=== PATIENT | female | born 1935 | race Caucasian/White ===

== ENCOUNTER 2024-01-01 11:27 | Emergency (ER) | payer MEDICARE, OTHER, SELFPAY ==
--- NOTE | ~2024-01-01 | CT_ITS ---
EXAMINATION: CT abdomen pelvis w con DATE: 01/01/2024 14:27 INDICATION: Epigastric abdominal pain. Nausea. TECHNIQUE: Computed tomography (CT) of the abdomen and pelvis was performed with 100 mL Omnipaque 350 intravenous contrast. Automated exposure control and iterative reconstruction technique were employe d. The dose-length product was 184.80 mGy-cm. COMPARISON: None. FINDINGS: The visualized portions of lung bases demonstrate mild atelectasis. There is mild bronchiec tasis in the right middle lobe, lingula, and left lower lobe. There are centrilobular nodules and miryam e-in-bud opacities bilaterally, consistent with mild pneumonia, likely chronic. No pleural effusion. The heart size is normal. No pericardial effusion. The liver is normal. There are wall calcifications of the gallbladder. There are cysts in the spleen measuring up to 6 mm. The pancreas, adrenal glands , and right kidney are normal. There is a 6 mm cyst in left kidney. There are no dilated loops of bow el. The appendix is normal. There are no pathologically enlarged lymph nodes. There is no free intrap eritoneal fluid. Left ovarian vein is enlarged, consistent with pelvic venous insufficiency. There is mild thoracic and lumbar spondylosis. IMPRESSION: 1. 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 2. Pelvic venous insufficiency. Reviewed, dictated and finalized at location A. IMPRESSION: 1. 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 2. Pelvic venous insufficiency.
[2024-01-01 11:37] VITALS: BP 171/76; PULSE 81; RESP 19; TEMP 36.4; O2SAT 96
[2024-01-01 11:48] LABS: Basophils Percent Auto 0.6 % (0.2-1.2); Eosinophils Absolute Auto 0.1 K/mm3 (0-0.3); Eosinophils Percent Auto 1.4 % (0-4.4); Hematocrit 39.3 % (37.0-47.0); Hemoglobin 13.3 g/dL (12.0-15.0); Immature Granulocyte Absolute 0.01 K/mm3 (0.00-0.031); Immature Granulocyte Percent A 0.2 % (0-0.5); Lymphocytes Absolute Auto 0.62 K/mm3 (0.9-3.2); Mean Corpuscular HGB Conc 33.8 g/dl (32-36); Mean Corpuscular Hemoglobin 30.9 pg (26-34); Mean Corpuscular Volume 91.4 fl (80-100); Mean Platelet Volume 9.4 fl (7.4-10.4); Monocytes Absolute Auto 0.5 K/mm3 (0.1-0.6); Monocytes Percent Auto 10.5 % (2.6-8.5); Neutrophils Absolute Auto 3.9 K/mm3 (1.3-6.7); Neutrophils Percent Auto 75.3 % (45.5-73.1); Platelet Count Result 292 k/mm3 (150-375); Red Cell Distribution Width 12.7 % (11.5-14.5); White Blood Count 5.2 K/mm3 (4.5-10.0)
[2024-01-01 11:59] LABS: Alanine Aminotransferase 17 U/L (6-35); Albumin Level 4.8 g/dL (3.5-5.1); Alkaline Phosphatase 81 U/L (38-126); Anion Gap 13 mmol/L (4-12); Aspartate Amino Transferase 31 U/L (14-36); Bilirubin,Total 0.7 mg/dL (0.2-1.3); Blood Urea Nitrogen 22 mg/dL (7-17); Calcium 9.9 mg/dL (8.4-10.2); Carbon Dioxide 26 mmol/L (22-30); Chloride 89 mmol/L (98-107); Estimated CRCL calculation 27 ml/min; Estimated Glomerular Filt Rate 53; Glucose 112 mg/dL (65-110); Lipase 120 U/L (23-300); Potassium 4.4 mmol/L (3.4-5.0); Sodium 128 mmol/L (137-145)
[2024-01-01 12:59] VITALS: BP 166/73; PULSE 80; RESP 13; O2SAT 100
[2024-01-01 13:03] LABS: Appearance Urine Clear (Clear); Bilirubin Urine Negative (Negative); Blood Urine Negative (Negative); Color Urine Yellow (Yellow); Glucose Urine UA Negative (Negative); Ketones Urine Negative (Negative); Leukocyte Esterase Ur Negative LEU/UL (Negative); Nitrate Urine Negative (Negative); Protein Urine Negative (Negative); Specific Grav Ur 1.009 (1.001-1.035); pH Urine 6.5 (5.0-9.0)
[2024-01-01 13:09] LABS: Add Urine Microscopic? NO
--- NOTE | 2024-01-01 13:42 | ED.ABDPAIN ---
HPI - Abdominal Pain General Chief Complaint: Abdominal Pain Stated Complaint: abd pain Time Seen by Provider: 01/01/24 13:11 Source: patient and family Mode of arrival: ambulatory Limitations: no limitations History of Present Illness HPI narrative: Patient presents with complaint epigastric abdominal pain and burning 1 months duration. This has been associated with nausea but no vomiting. 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 She has been referred to [facility] for further evaluation of this but the 1st available appointment is in April. As such she continues to do with intermittent dizziness. She then started to develop this abdominal pain. Her primary care provider (DENICE Ovalle) started her on Prilosec 3 weeks ago then prescribed dicyclomine. Last bowel movement was yesterday and small/hard. She denies any diarrhea or blood. She notes that her symptoms are worse in the morning. She does not have an appetite. Last oral intake toast this morning and half a bottle of Ensure. She has never underwent EGD but does have a consult with aKtlin Palomares for consideration of an EGD in 3 weeks. Her symptoms occurred intermittently. She has both Zofran and Compazine at home. No prior abdominal surgeries. Not on anticoagulation. Does continue to pass flatus. Related Data Home Medications Medication Instructions Recorded Confirmed calcium-vitamin D3 250 mg-50 unit tablet PO 01/08/23 12/25/23 tablet multivitamin 1 tablet PO DAILY 01/08/23 12/25/23 omega 7-pct-cwk-fish oil 100 cap PO 01/08/23 12/25/23 mg-160 mg-1,000 mg capsule (Fish Oil) sertraline 50 mg tablet (Zoloft) 75 mg PO DAILY 12/25/23 12/25/23 Allergies Allergy/AdvReac Type Severity Reaction Status Date / Time No Known Allergies Allergy Unverified 12/25/23 14:31 [facility] Past Medical History Medical History (Updated 01/02/24 @ 10:02 by Evy Azul MD) Anxiety B12 deficiency Benign positional vertigo Carotid artery calcification Heart murmur Hypertension Hypothyroidism Vestibular neuritis Surgical History Surgical History H/O colonoscopy Family History Family History Mother Hypertension Cerebrovascular accident Sibling Diabetes mellitus Hypertension Social History Social History (Updated 01/01/24 @ 14:25 by Evy Azul MD) Social History: Active, rides her bicycle Smoking status: Never smoker Alcohol intake: never Substance use: never Lack of Transportation: No Lack of Food: Never True Current Housing: I Have Housing Concerned About Future Housing: No Difficulty Paying Gas/Electric Bills: No Difficulty Paying for Meds: No Currently Unemployed: No Education: Don't Know Difficulty w/ Childcare or Family Care: No Living arrangements: alone Occupation/Education: retired Additional occupation/education comments: Former nurse; 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 HEAD: Normocephalic, atraumatic. EYES: Non injected, non icteric ENT: Nares clear, no rhinorrhea or epistaxis. NECK: Supple. CHEST: Speaking in full sentences. No respiratory distress. HEART: Regular rate and rhythm. . ABDOMEN: Soft, nondistended. Mild suprapubic fullness but without tenderness palpation. No tenderness to palpation rigidity or guarding. No peritoneal. EXTREMITIES: Normal range of motion. No edema. SKIN: Warm, dry, no rash. NEURO: No focal deficits. Alert and oriented x3. PSYCH: Normal mood and affect.
[2024-01-01] MEDS: FAMOTIDINE 20 MG/2 ML VIAL IV PUSH (14:34)
[2024-01-01] MEDS: ONDANSETRON INJ 4 MG/2 ML VIAL IV PUSH (14:34)
[2024-01-01] MEDS: SODIUM CHLORIDE 0.9% IV 1,000 ML 999 ML IV CONT (14:34)
[2024-01-01] MEDS: DOXYCYCLINE HYCLATE 100 MG TABLET PO (17:51)
== END 2024-01-01 17:59 | disposition home or self-care (01) ==
PROVIDERS: Emergency Provider Student in an Organized Health Care Education/Training Program; PCP Nurse Practitioner Family
DX: R10.13 Epigastric pain (principal); E87.1 Hypo-osmolality and hyponatremia; J18.9 Pneumonia, unspecified organism; I10 Essential (primary) hypertension; E53.8 Deficiency of other specified B group vitamins; E03.9 Hypothyroidism, unspecified; F41.9 Anxiety disorder, unspecified; Z79.899 Other long term (current) drug therapy; I87.2 Venous insufficiency (chronic) (peripheral)
CPT/HCPCS: 36415; 74177; 80053; 81003; 83690; 85025; 87015; 87070; 87116; 87118; 87205; 87206; 96361; 96374; 96375; 99284; A9270; J2405; J7030; Q9967

== ENCOUNTER 2024-01-03 07:55 | Emergency (ER) | payer MEDICARE, OTHER, SELFPAY ==
[2024-01-03] VITALS (15 sets, daily range): BP systolic 144–190; BP diastolic 59–155; PULSE 85–90; RESP 17–22; TEMP 36.6–37.2; O2SAT 92–100
--- NOTE | 2024-01-03 08:00 | ECG_ITS ---
Test Date: 2024-01-03 08:03:55 Measurements Intervals [place] Rate: 93 P: 74 [place]: 172 QRS: -16 QRSD: 85 T: 78 QT: 345 QTc: 430 Interpretive Statements SINUS RHYTHM POSSIBLE LEFT ATRIAL ENLARGEMENT [-0.1mV P WAVE IN V1/V2] NONSPECIFIC T-WAVE ABNORMALITY ABNORMAL ECG No previous ECG available for comparison Electronically Signed On 01-03-2024 11:33:16 CDT by Sandeep Smith M.D.
--- NOTE | 2024-01-03 09:30 | ED.ABDPAIN ---
HPI - Abdominal Pain General Chief Complaint: Anxiety <Billy Schwarz APRN - Last Filed: 01/03/24 09:39> Stated Complaint: abd pain <Billy Schwarz APRN - Last Filed: 01/03/24 09:39> Time Seen by Provider: 01/03/24 09:30 <Billy Schwarz APRN - Last Filed: 01/03/24 09:39> patient presents with epigastric pain that has been increasing since last night. patient states it is a burning pain. patient states she has had this pain in the past but has never been this bad. patient states she is scheduled for a EGD in 3 weeks. patient also having dizziness r/t her vestibular neuritis. patient also having nausea. no relief with nausea PE: A&ox3, BS CTA, epigastric tenderness with palpation, appear anxious <Billy Schwarz APRN - Last Filed: 01/03/24 09:39> History of Present Illness HPI narrative: Agree with HPI. Seen for this couple days ago. Nothing acute on CT scan. Taking daily Prilosec. <Felix Martinez MD - Last Filed: 01/03/24 14:46> Related Data Home Medications: Home Medications Medication Instructions Recorded Confirmed calcium-vitamin D3 250 mg-50 unit tablet PO 01/08/23 12/25/23 tablet multivitamin 1 tablet PO DAILY 01/08/23 12/25/23 omega 9-dih-vtq-fish oil 100 cap PO 01/08/23 12/25/23 mg-160 mg-1,000 mg capsule (Fish Oil) sertraline 50 mg tablet (Zoloft) 75 mg PO DAILY 12/25/23 12/25/23 <Billy Schwarz APRN - Last Filed: 01/03/24 09:39> Allergies/Adverse Reactions: Allergies Allergy/AdvReac Type Severity Reaction Status Date / Time No Known Allergies Allergy Unverified 12/25/23 14:31 <Billy Schwarz APRN - Last Filed: 01/03/24 09:39> Review of Systems Review of Systems: All systems reviewed & are unremarkable except as noted in HPI and below <Felix Martinez MD - Last Filed: 01/03/24 14:46> Constitutional: Constitutional: Reports no additional constitutional complaints <Felix Martinez MD - Last Filed: 01/03/24 14:46> ENT: Reports system reviewed and no additional complaints, except as documented <Felix Martinez MD - Last Filed: 01/03/24 14:46> Cardiovascular: Cardiovascular: Reports no additional cardiovascular complaints <Felix Martinez MD - Last Filed: 01/03/24 14:46> Respiratory: Respiratory: Reports no additional respiratory complaints <Felix Martinez MD - Last Filed: 01/03/24 14:46> Gastrointestinal: Gastrointestinal: Reports abdominal pain, Reports heartburn, Denies diarrhea, Denies nausea and Denies vomiting <Felix Martinez MD - Last Filed: 01/03/24 14:46> Genitourinary: Genitourinary: Reports no additional female genitourinary complaints <Felix Martinez MD - Last Filed: 01/03/24 14:46> Psychiatric: Psychiatric: Reports anxiety and Denies depression <Felix Martinez MD - Last Filed: 01/03/24 14:46> [facility] Past Medical History Medical History: Medical History (Updated 01/03/24 @ 11:59 by Felix Martinez MD) Anxiety B12 deficiency Benign positional vertigo Carotid artery calcification Heart murmur Hypertension Hypothyroidism Vestibular neuritis <Billy Schwarz APRN - Last Filed: 01/03/24 09:39> Surgical History Surgical History: Surgical History H/O colonoscopy <Billy Schwarz APRN - Last Filed: 01/03/24 09:39> Family History Family History: Family History Mother Hypertension Cerebrovascular accident Sibling Diabetes mellitus Hypertension <Billy Schwarz APRN - Last Filed: 01/03/24 09:39> Social History Social History: Social History (Updated 01/01/24 @ 14:25 by Evy Azul MD) Social History: Active, rides her bicycle Smoking status: Never smoker Alcohol intake: never Substance use: never Substance use type: does not use Lack of Transportation: No Lack of Food: Never True Current Housing: I Have Housing
[2024-01-03] MEDS: BELLADONNA ALK/PHENOB ELIX 10 ML, MAG HYDROX/ALUMINUM HYD/SIMETH 30 ML, LIDOCAINE HCL 2... PO (10:02)
[2024-01-03 10:53] LABS: Basophils Absolute Auto 0.1 K/mm3 (0.0-0.1); Eosinophils Absolute Auto 0.1 K/mm3 (0-0.3); Eosinophils Percent Auto 0.9 % (0-4.4); Hematocrit 39.3 % (37.0-47.0); Hemoglobin 13.4 g/dL (12.0-15.0); Immature Granulocyte Absolute 0.02 K/mm3 (0.00-0.031); Immature Granulocyte Percent A 0.3 % (0-0.5); Lymphocytes Absolute Auto 0.69 K/mm3 (0.9-3.2); Mean Corpuscular HGB Conc 34.1 g/dl (32-36); Mean Platelet Volume 9.5 fl (7.4-10.4); Monocytes Absolute Auto 0.6 K/mm3 (0.1-0.6); Monocytes Percent Auto 10.6 % (2.6-8.5); Neutrophils Absolute Auto 4.3 K/mm3 (1.3-6.7); Neutrophils Percent Auto 75.2 % (45.5-73.1); Platelet Count Result 265 k/mm3 (150-375); Red Blood Count 4.32 M/mm3 (4.2-5.4); Red Cell Distribution Width 12.8 % (11.5-14.5); White Blood Count 5.8 K/mm3 (4.5-10.0)
[2024-01-03 10:54] LABS: Alanine Aminotransferase 20 U/L (6-35); Albumin Level 4.5 g/dL (3.5-5.1); Alkaline Phosphatase 82 U/L (38-126); Amylase 84 U/L (30-110); Anion Gap 5 mmol/L (4-12); Aspartate Amino Transferase 29 U/L (14-36); Bilirubin,Total 0.8 mg/dL (0.2-1.3); Blood Urea Nitrogen 21 mg/dL (7-17); Calcium 9.8 mg/dL (8.4-10.2); Carbon Dioxide 28 mmol/L (22-30); Chloride 101 mmol/L (98-107); Estimated CRCL calculation 33 ml/min; Estimated Glomerular Filt Rate 59; Glucose 124 mg/dL (65-110); Lipase 114 U/L (23-300); Magnesium 2.1 mg/dL (1.6-2.3); Potassium 3.4 mmol/L (3.4-5.0); Sodium 134 mmol/L (137-145)
[2024-01-03 11:04] LABS: Troponin I < 0.012 ng/mL (0.000-0.034)
[2024-01-03] MEDS: SODIUM CHLORIDE 0.9% IV 1,000 ML 999 ML IV CONT (12:26)
[2024-01-03] MEDS: PANTOPRAZOLE SODIUM IV 40 MG VIAL IV PUSH (12:26)
[2024-01-03] MEDS: LORazepam INJ (*CRX) 2 MG/ML VIAL 0.5 MG IV PUSH (12:27)
== END 2024-01-03 14:51 | disposition home or self-care (01) ==
PROVIDERS: Nurse Practitioner Family; Emergency Provider Emergency Medicine; PCP Nurse Practitioner Family
DX: K21.9 Gastro-esophageal reflux disease without esophagitis (principal); I10 Essential (primary) hypertension; E53.8 Deficiency of other specified B group vitamins; E03.9 Hypothyroidism, unspecified; F41.9 Anxiety disorder, unspecified; Z79.899 Other long term (current) drug therapy
CPT/HCPCS: 36415; 80053; 82150; 83690; 83735; 84484; 85025; 93005; 96361; 96374; 96375; 99284; A9270; J2060; J2470; J7030

== ENCOUNTER 2024-01-09 07:15 | Day surgery (SDC) | payer MEDICARE, OTHER, SELFPAY ==
[2024-01-07 08:41] VITALS: BMI 19.3
[2024-01-07 12:38] VITALS: BMI 19.1
[2024-01-09] VITALS (9 sets, daily range): BP systolic 102–211; BP diastolic 54–90; PULSE 61–90; RESP 15–20; TEMP 36.9; O2SAT 92–100; BMI 18.3
--- NOTE | 2024-01-09 08:40 | SUR.PREOP ---
0815; PT INITIAL BP 204/84, HR 90. PT TALKING QUICKLY AND STATES SHE IS VERY ANXIOUS. PT REASSURED, WILL RECHECK BP. 0840; RECHECK BP 211/86, HR 88. PT REMAINS VERY ANXIOUS.
--- NOTE | 2024-01-09 09:03 | SUR.PREOP ---
7182; DR YANG NOTIFIED OF PT ANXIETY AND ELEVATED BP. WILL RECHECK AGAIN
[2024-01-09] MEDS: LACTATED RINGERS 1,000 ML 150 ML IV CONT (09:06)
--- NOTE | 2024-01-09 09:16 | PM.HPGS ---
History of Present Illness History of Present Illness Consent: Risks, benefits, and alternatives have been discussed and questions answered. Patient agrees to proceed with procedure. Chief complaint: Nausea Narrative: Sonja Kenney is a 88 year old female referred for EGD. Patient has a history of chronic anxiety. She complains of epigastric pain and nausea. And has had poor relief from this. Patient has tried medications for vertigo. She has seen ENT for evaluation because of ongoing epigastric pain and nausea now referred for EGD Review of Systems Review of Systems: All systems reviewed & are unremarkable except as noted in HPI and below PMFSH Past Medical History Medical History ) Anxiety B12 deficiency Benign positional vertigo Carotid artery calcification Heart murmur Hypertension Hypothyroidism Vestibular neuritis Surgical History Surgical History ) H/O colonoscopy Family History Family History ) Mother Hypertension Cerebrovascular accident Sibling Diabetes mellitus Hypertension Social History Social History ) Social History: Active, rides her bicycle Smoking status: Former smoker Alcohol intake: never Substance use: never Substance use type: does not use Lack of Transportation: No Lack of Food: Never True Current Housing: I Have Housing Concerned About Future Housing: No Difficulty Paying Gas/Electric Bills: No Difficulty Paying for Meds: No Currently Unemployed: No Education: Don't Know Difficulty w/ Childcare or Family Care: No Living arrangements: alone Occupation/Education: retired Additional occupation/education comments: Former nurse; 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: No Agree to blood products: Yes Meds Home Medications and Allergies Home Medications Medication Instructions Recorded Confirmed Type calcium-vitamin D3 250 mg-50 unit 1 tablet PO DAILY 01/08/23 01/09/24 History tablet multivitamin 1 tablet PO DAILY 01/08/23 01/09/24 History omega 8-mtd-jza-fish oil 100 1 cap PO DAILY 01/08/23 01/09/24 History mg-160 mg-1,000 mg capsule (Fish Oil) cyanocobalamin (vitamin B-12) 1,000 mcg subcut MONTHLY #10 mL 10/22/23 01/09/24 Rx 1,000 mcg/mL injection solution levothyroxine 100 mcg tablet See Rx Instructions .Route 11/04/23 01/09/24 Rx .COMPLEX #90 tabs sertraline 50 mg tablet (Zoloft) 75 mg PO DAILY 12/25/23 01/09/24 History ondansetron 4 mg disintegrating 4 mg PO Q6H PRN nausea and 01/06/24 01/09/24 Rx tablet vomiting #30 tabs pantoprazole 40 mg tablet,delayed 40 mg PO BID #60 tabs 01/06/24 01/09/24 Rx release (Protonix) amlodipine 5 mg-benazepril 10 mg 1 cap PO DAILY 01/07/24 01/09/24 History capsule (Lotrel) lorazepam 1 mg tablet 1 mg PO DAILY PRN Anxiety 01/07/24 01/09/24 History pravastatin 40 mg tablet 40 mg PO DAILY 01/07/24 01/09/24 History Allergies Allergy/AdvReac Type Severity Reaction Status Date / Time No Known Allergies Allergy Verified 01/07/24 12:39 Vital Signs Vital Signs - 24 hr 01/09/24 08:25 01/09/24 08:39 Temperature 98.4 F Pulse Rate 90 88 Respiratory Rate 20 20 Blood Pressure 204/84 H 211/86 H Pulse Oximetry 100 Oxygen Delivery Room Air Exam Narrative: Physical exam reveals patient to be alert. Vital signs stable. HEENT exam is unremarkable. Patient is anicteric. Lungs are clear to auscultation and percussion. Heart is without murmur or extra sounds. Abdomen bowel sounds are present soft nontender with no hepatosplenomegaly. Assessment and Plan Assessment and plan (1) Chronic nausea: Code(s): R11.0 - Nausea Status: Acute Assessment and Plan: Patient with ongoing nausea. Plan for EGD to
[2024-01-09] MEDS: LABETALOL HCL INJ 100 MG/20 ML VIAL IV PUSH (09:46)
[2024-01-09] MEDS: MIDAZOLAM HCL (*CRX) 2 MG/2 ML VIAL IV PUSH (09:48)
[2024-01-09] MEDS: fentaNYL CITRATE INJ (*CRX) 100 MCG/2 ML VIAL 25 MCG IV PUSH (09:53)
--- NOTE | 2024-01-09 10:00 | SUR.PREOP ---
PT GIVEN LABETOLOL, FENTANYL, AND VERSED PER DR YANG ORDERS. DAUGHTER AT BEDSIDE. 1000; SAO2 RANGING FROM 88%-96% ON ROOM AIR. HOB AT 30 DEGREES. O2 2L NC APPLIED. CALL LIGHT IN REACH. CONTINUOUS PULSE OX ON.
--- NOTE | 2024-01-09 10:05 | SUR.PREOP ---
PT AWAKE AND ALERT. MUCH MORE RELAXED NOW. CONTINUOUS PULSE OX.
--- NOTE | 2024-01-09 10:30 | WPDANESEPPF ---
Anes - Initial Pre Proc Eval Procedure: Operation Date: 01/09/24 10:00 Proposed Procedures p Esophagogastroduodenoscopy - Julio Whitmore MD Date/Time: 01/09/24 10:30 Surgeon: Julio Whitmore MD Pre Op Diagnosis: Nausea Patient Data Age: 88 Gender: F Height: 1.6 m Weight: 47 kg Last Vital Signs Temp 36.9 C 01/09/24 08:25 Pulse 73 01/09/24 10:05 Resp 16 01/09/24 10:05 BP 131/69 01/09/24 10:05 Pulse Ox 98 01/09/24 10:05 O2 Del Method Nasal Cannula 01/09/24 10:05 O2 Flow Rate 2 01/09/24 10:05 Allergies Allergy/AdvReac Type Severity Reaction Status Date / Time No Known Allergies Allergy Verified 01/07/24 12:39 Home Medications Medication Instructions Recorded Confirmed Type calcium-vitamin D3 250 mg-50 unit 1 tablet PO DAILY 01/08/23 01/09/24 History tablet multivitamin 1 tablet PO DAILY 01/08/23 01/09/24 History omega 8-wrm-mbs-fish oil 100 1 cap PO DAILY 01/08/23 01/09/24 History mg-160 mg-1,000 mg capsule (Fish Oil) cyanocobalamin (vitamin B-12) 1,000 mcg subcut MONTHLY #10 mL 10/22/23 01/09/24 Rx 1,000 mcg/mL injection solution levothyroxine 100 mcg tablet See Rx Instructions .Route 11/04/23 01/09/24 Rx .COMPLEX #90 tabs sertraline 50 mg tablet (Zoloft) 75 mg PO DAILY 12/25/23 01/09/24 History ondansetron 4 mg disintegrating 4 mg PO Q6H PRN nausea and 01/06/24 01/09/24 Rx tablet vomiting #30 tabs pantoprazole 40 mg tablet,delayed 40 mg PO BID #60 tabs 01/06/24 01/09/24 Rx release (Protonix) amlodipine 5 mg-benazepril 10 mg 1 cap PO DAILY 01/07/24 01/09/24 History capsule (Lotrel) lorazepam 1 mg tablet 1 mg PO DAILY PRN Anxiety 01/07/24 01/09/24 History pravastatin 40 mg tablet 40 mg PO DAILY 01/07/24 01/09/24 History Patient hx anesthesia problems: none Family hx anesthesia problems: none Results Review: All pre-operative results and documents have been reviewed as part of the pre-operative evaluation. [facility] Past Medical History Medical History Anxiety B12 deficiency Benign positional vertigo Carotid artery calcification Heart murmur Hypertension Hypothyroidism Vestibular neuritis Surgical History Surgical History H/O colonoscopy Family History Family History Mother Hypertension Cerebrovascular accident Sibling Diabetes mellitus Hypertension Social History Social History Social History: Active, rides her bicycle Smoking status: Former smoker Alcohol intake: never Substance use: never Substance use type: does not use Lack of Transportation: No Lack of Food: Never True Current Housing: I Have Housing Concerned About Future Housing: No Difficulty Paying Gas/Electric Bills: No Difficulty Paying for Meds: No Currently Unemployed: No Education: Don't Know Difficulty w/ Childcare or Family Care: No Living arrangements: alone Occupation/Education: retired Additional occupation/education comments: Former nurse; 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 Informed Consent: The patient's anesthetic plan and its attendant risks and benefits were discussed with the patient/family/POA. Questions were solicited and answe
== END 2024-01-09 11:15 | disposition home or self-care (01) ==
PROVIDERS: PCP Nurse Practitioner Family; Visit Provider Internal Medicine Gastroenterology
PROC: 0DJ08ZZ Inspection of Upper Intestinal Tract, Via Natural or Artificial Opening Endoscopic (ICD-10-PCS; CPT 43235; principal; 2024-01-09 10:00)
DX: R11.0 Nausea (principal); R10.13 Epigastric pain
CPT/HCPCS: 43239

== ENCOUNTER 2024-02-06 08:03 | Outpatient (CLI) | payer MEDICARE, OTHER, SELFPAY ==
--- NOTE | ~2024-02-06 | NM_ITS ---
EXAM: NM gastric emptying study DATE: 02/06/2024 13:27 CDT INDICATION: Nausea with vomiting TECHNIQUE: A gastric emptying study was performed using the methodology of Alexa GONZALEZ, et al. J Nucl Med 2007; 48:568-572. The patient was given a meal consisting of 2 scrambled eggs labeled with 1.047 mCi Tc-99m sulfur colloid, 2 slices of toast, two packages of jam, and approximately 120 mL of water . Simultaneous anterior and posterior 1-min images of the abdomen were obtained with the patient supi ne at multiple time points over a total period of 4 hours. The geometric mean of anterior and posteri or views was determined, and the percentage retention was calculated for each time point. COMPARISON: None. FINDINGS: Gastric retention of the radiotracer-labeled meal was 6%, 35%, and 3% at the 1-hour, 2-amanda r, and 4-hour time points, respectively. With this technique, apparent rapid gastric emptying is sugg ested by <30% gastric retention at 1 hour. Delayed gastric emptying is defined by gastric retention o f >90% at 1 hour, >60% retention at 2 hours, or >10% retention at 4 hours. IMPRESSION: 1. Normal gastric emptying. Reviewed, dictated and finalized at location B. IMPRESSION: 1. Normal gastric emptying.
== END 2024-02-06 08:04 | disposition home or self-care (01) ==
LOC: ANHIMG 08:05
PROVIDERS: PCP Nurse Practitioner Family; Visit Provider Nurse Practitioner Family
DX: R11.2 Nausea with vomiting, unspecified (principal)
CPT/HCPCS: 78264; A9541

== ENCOUNTER 2024-03-31 10:51 | Outpatient (CLI) | payer MEDICARE, OTHER, SELFPAY ==
--- NOTE | ~2024-03-31 | CT_ITS ---
CT Scan of the Chest without Contrast: Clinical Indication: Mycobacterial pulmonary infection Technique: Contiguous sections were acquired throughout the chest without intravenous contrast. Dose reduction technique was used on this scan by utilizing automated exposure control and iterative recon struction technique. The dose-length product (DLP) was 66.55 mGy-cm. Findings: There is no evidence of any significant mediastinal, hilar or axillary lymphadenopathy. There are ath erosclerotic calcifications of the aorta and coronary arteries. There is no evidence of pleural or pericardial effusion. There is biapical pulmonary scarring. Calcified granulomas present in the right lower lobe. There are scattered areas of tree-in-bud opacities involving the right middle lobe, lingula, medial left lower lobe, and anterolateral right lower lobe. Several slightly larger nodules are present at the medial left lower lobe, measuring up to 7 mm in diameter. Images through the upper abdomen reveal no abnormalities. Impression: Scattered tree-in-bud opacities in the lungs, as detailed above, with several slightly larger nodules at the medial left lower lobe. 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 Reviewed, dictated and finalized at [facility]. Impression: Scattered tree-in-bud opacities in the lungs, as detailed above, with several s lightly larger nodules at the medial left lower lobe. 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
== END 2024-03-31 10:52 | disposition home or self-care (01) ==
PROVIDERS: PCP Nurse Practitioner Family; Visit Provider Internal Medicine Pulmonary Disease
DX: A31.0 Pulmonary mycobacterial infection (principal)
CPT/HCPCS: 71250

== ENCOUNTER 2024-04-22 12:56 | Outpatient (CLI) | payer MEDICARE, OTHER, SELFPAY | END 2024-04-22 12:57 | disposition home or self-care (01) | PROVIDERS: PCP Nurse Practitioner Family; Visit Provider Nurse Practitioner Family | DX: A31.0 Pulmonary mycobacterial infection (principal) | CPT/HCPCS: 87015; 87070; 87116; 87205; 87206 ==

== ENCOUNTER 2024-07-15 13:50 | Outpatient (CLI) | payer MEDICARE, OTHER, SELFPAY ==
--- OUTSIDE RECORDS SUMMARY | 2024-07-15 13:53 | XMS_ITS ---
Author Organization [facility] [place] Address [address] [place] [address] Care Team Providers Care Diamond Polisher Name Role Phone Santo JAMES, Khari Primary Care Provider Unavailab Yeni Dhaliwal Unavailable [phone] Allergies Allergen (clinical drug ingredient) Drug/Non Drug Allergy documented on EMR Reaction Allergy Type Onset Date Status Inapsine Unknown Drug Allergy 11/18/2023 Active REASON FOR VISIT follow up DAMON, adjustment disorder, panic disorder, insomnia Medications Medication SIG (Take, Route, Frequency, Duration) Notes Start Date End Date Status diazePAM 5 MG TAKE 1 TABLET BY MOUTH EVERY 8 HOURS NEEDED FOR DIZZINESS Oral for 10 Days [id number],Unavail able Not-Taking amLODIPine Besy-Benazepril HCl 5-10 MG Oral 10/16/2023 Active Levothyroxine Sodium 100 MCG Oral 10/16/2023 Active Ofloxacin 0.30% Ophthalmic 10/16/2023 Ac tive Pravastatin Sodium 40 MG Oral 10/16/2023 Active Cyanocobalamin 1000 MCG/ML Injection 10/16/2023 Active PriLOSEC 2.5 MG as directed Orally Active Omeprazole Magnesium 20 MG 1 tablet 30 minutes before morning meal Orally Once a day Active Sertraline HCl 100 MG 1 tablet every morning Oral Once a day for 30 days Active LORazepam 1 MG TAKE 1/2 TO 1 (ONE-HALF TO ONE) TABLET BY MOUTH ONCE DAILY NEEDED FOR SEVERE ANXIETY Oral Active Social History Tobacco Use: Social History Observation Description Date Details (start date - stop date) Former Smoker NA - NA Sex Assigned At : Social History Observation Description Sex Assigned At Female Tobacco Control (Standard) Question Answer Notes Tobacco use: Former smoker How long has it been since you last smoked? [address] ter than 10 years Section Notes: Social History Substance Use Do you or have you ever smoked tobacco?: Former smoker How much tobacco do you smoke?: None Do you or have you ever used any other forms of tobacco or nicotine?: No Do you or have you ever used e-cigarettes or vape?: Never used electronic cigarettes What was the date of your most recent tobacco screening?: 10/16/2023 Has tobacco cessation counseling been provided?: No What is your level of alcohol consumption?: None How many years have you consumed alcohol?: 3 Do you use any illicit or recreational drugs?: No Which illicit or recreational drugs have you used?: None Have you used IV drugs?: No What is your level of caffeine consumption?: Moderate Education and Occupation What is the highest grade or level of school you have completed or the highest degree you have received?: Associate degree: academic program Are you currently employed?: No Who is your employer?: None Marriage and Sexuality What is your relationship status?: Are you sexually active?: No How many children do you have?: 3 Home and Environment Are there any guns present in your home?: No Advance Directive Do you have an advance directive?: No Do you have a medical power of trademark attorney?: No Problems Problem Type SNOMED Code ICD Code Onset Dates Problem Status W/U Status Risk Notes Problem Elevated blood pressure reading without diagnosis of hypertension (229460367) Elevated blood-pressure reading, without diagnosis of hypertension (R03.0) Active confirmed Problem Somatic symptom disorder (840972641) 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 Problem Hypertension (05657979) Hypertension (I10) Active confirmed Vital Signs Blood pressure systolic 186 mm Hg 04/08/20 24 Blood pressure diastolic 78 mm Hg 024 Heart Rate 93 /min 04/08/2024 Height 63.00 in 04/08/2024 Weight 111 lbs 04/08/2024 BMI 19.66 kg/m2 04/08/2024 Height-cm 160.02 cm 04/08/2024 Weight-kg 50.35 kg 04/08/2024 Encounters Encounter Location Date [facility] [address] [address] 04/08/2024 Yeni Fall Somatic symptom disorder F45.1 ; Panic attacks F41.0 ; Insomnia due to other mental disorder F51.05 and Hypertension I10 Assessments Encounter Date Diagnosis (ICD Code) Assessment Notes Treatment Notes Treatment Clinical Notes Section Notes 04/08/2024 Somatic symptom disorder (ICD-10 - F45.1) cont. sertraline 100 mg as prescribed. Cont. lorazepam 0.5 mg, 0.5 - 1 tab as needed once a day. minimize use as much as you can. Hope to be able to discontinue when your anxiety is better controlled and health status has improved using relaxation techniques. recommend considering therapy for additional support and coping skills She was previously dx DAMON, but there is not apparent evidence of generalized anxiety. She denies being troubled by worries or anxioud about multiple factors. Her anxiety presently and as of late centers solely around her multiple health concerns. Previously diagnised adjustment disorder, however these factos have been ongoing beyond three months. Current appropriate dx somatic symptom disorder 04/08/2024 Panic attacks (ICD-10 - F41.0) denies recent panic episodes. see above She was previously dx DAMON, but there is not apparent evidence of generalized anxiety. She denies being troubled by worries or anxioud about multiple factors. Her anxiety presently and as of late centers solely around her multiple health concerns. Previously diagnised adjustment disorder, however these factos have been ongoing beyond three months. Current appropriate dx somatic symptom disorder 04/08/2024 Insomnia due to other mental disorder (ICD-10 - F51.05) cont OTC melatonin 5mg as neededcontinue good sleep hygiene She was previously dx DAMON, but there is not apparent evidence of generalized anxiety. She denies being troubled by worries or anxioud about multiple factors. Her anxiety presently and as of late centers solely around her multiple health concerns. Previously diagnised adjustment disorder, however these factos have been ongoing beyond three months. Current appropriate dx somatic symptom disorder 04/08/2024 Hypertension (ICD-10 - I10) BP was high today. Monitor at home, follow up with PCP remain compliant with treatment recommended She was previously dx DAMON, but there is not apparent evidence of generalized anxiety. She denies being troubled by worries or anxioud about multiple factors. Her anxiety presently and as of late centers solely around her multiple health concerns. Previously diagnised adjustment disorder, however these factos have been ongoing beyond three months. Current appropriate dx somatic symptom disorder Plan Of Treatment Medication Medication Name Sig Start Date Stop Date Notes Sertraline HCl 100 MG 1 tablet every mor vivek Oral Once a day for 30 days LORazepam 1 MG TAKE 1/2 TO 1 (ONE-H [place] TO ONE) TABLET BY MOUTH ONCE DAILY NEEDED FOR SEVERE ANXIETY Oral Treatment Notes Assessment Notes Somatic symptom disorder cont. sertraline 100 mg as prescribed. Cont. lorazepam 0.5 mg, 0.5 - 1 tab as needed once a day. minimize use as much as you can. Hope to be able to discontinue when your anxiety is better controlled and health status has improved using relaxation techniques. recommend considering therapy for additional support and coping skills Panic attacks denies recent panic episodes. see above Insomnia due to other mental disorder co nt OTC melatonin 5mg as neededcontinue good sleep hygiene Hypertension BP was high today. Monitor at home, follow up with PCP remain compliant with treatment recommended Next Appt Details Provider Name:Yeni mar, 08/17/2024 03:00:00 PM, [facility] [address] [facility] [address], [address], Progress Notes * HENRY FIELDROXANAOB: [birth year] (88 yo F)Acc No.[id number]:04/08/2024 Patient: DALLIN BARKER Provider: Haleigh Fall :1935 A ge:88 Y S ex:Female Date:04/08/2024 Address:[address] [place], [place] [id number] Pcp:Khari Blanchard MD Subjective: * Chief Complaints: * f ollow up DAMON, adjustment disorder, panic disorder, insomnia * HPI: D epression screening: PHQ-9 L ittle interest or pleasure in doing things S everal days, F eeling down, depressed, or hopeless S everal days, T rouble falling or staying asleep, or sleeping too much N ot at all, F eeling tired or having little energy N ot at all, P oor appetite or overeating N ot at all, F eeling bad about yourself or that you are a failure, or have let yourself or your family down N ot at all, T rouble concentrating on things, such as reading the newspaper or watching television N ot at all, M oving or speaking so slowly that other people could have noticed; or the opposite, being so fidgety or restless that you have been moving around a lot more than usual N ot at all, T houghts that you would be better off or of hurting yourself in some way N ot at all, T otal Score 2 , Interpretation M inimal Depression. I ntervention D epression Screening Findings?Negative, S uicide Risk Assessment Performed . D epression Screening: DAMON-7 (2018 Edition) F eeling nervous, anxious, or on edge?Several days, N ot being able to stop or control worrying S everal days, W orrying too much about different things N ot at all, T rouble relaxing N ot at all, B eing so restless that it is hard to sit still N ot at all, B ecoming easily annoyed or irritable?Not at all, F eeling afraid as if something awful might happen N ot at all, T otal DAMON-7 Score 2 , I f you checked any problems, how difficult have they made it for you to do your work, take care of things at home, or get along with other people? N ot difficult at all,?Interpretation of Total ( 0 to 4) No Anxiety. 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 Presents today with CC of ongoing anxiety related to multiple health issues, including vestibular neuritis causing persistent dizziness and occasional lightheadedness. She reports this all started around December, was overall healthy prior. Acid reflux now managed with Prilosec and diet. Reports dry eyes. CT scan in December for acid reflux revealed a small area of pneumonia, SC showed a n atypical mycobacterium, now having ongoing monitoring via CT scans every four months. Reports a dry cough but no other symptoms of pneumonia. Her anxiety has been relatively m anaged with sertraline and occasional lorazepam. She is scheduled to see a specialist for her vestibular neuritis later this month and continues to monitor her health closely. Has lost weight from her GERD complications, down to 102 lbs per patient, gaining weight back up, 107 today. Reports sleep as good currently, 8 hours/night aaverage. Decreased melatonin use recently. Denies depressed mood. Teary-eyed during appointment. She expresses frustration with the accumulation of multiple health issues after years of good health and is particularly concerned now with m ycobacterium infection and the potential development of worsening complications. She notes her BP has been lower lately, s ometimes omits her BP medication. Describes her dizziness as a floating sensation rather than severe vertigo. Expresses constant worry about health and recovery, denies experiencing panic attacks. H istory of Presenting Problem: ALL PREVIOUS ENCOUNTERS SEEN WITH KARIN GUILLEN. SEE OLD NOTES. 03/09/2024 f/u: seems to be better after increasing sertraline, less anxious days and I'm doing more, going out and playing cards again and riding my bike, and the acid reflux seems to have resolved. Starting to eat more again. Even made pumpkin pie the other day. Still have some anxious days. Not had full panic attack. Denies depression, SI. No, I know it's going to get better. Sleep better too, falling asleep without melatonin. still has 20 left of ativan, taking max 3-4 days a week usually 1/2 tab only. Encouraged minimizing use. Denies falls. Medical: sees s pecialist at [facility] or the vestibular neuritis in April. cont sertraline 100mg daily, recommended counseling 02/05/2024 follow up: reported increased anxiety. Endorsed medical problems of ongoing dry eyes, vestibular neuritis, GERD complications. No appetite, endorsed nauseam dizziness. Endorsed panic attacks. increased sertraline this visit to 100 mg daily. Stopped Valium, was taking old lorazepam, refilled. encouraged sleep hygiene, taking melatonin. r ecommended counseling 12/23/2023 follow up: taking zoloft 50 mg, endorsed ongoing anxiety. Endorses stomach problems: nausea, bloating, verbalized issues with this prior to sertraline. started Prilosec. Sleeping okay. Deonte Wolf for another provider. sertraline increased to 75 mg daily. encouraged sleep hygiene, taking melatonin. r ecommended counseling 11/14/2023 follow up: complains of neuritis, doing exercises for it. causes dizziness nausea, ER, given valium for dizziness. Endorses not taking the Vaium or Ativan. thinks sertraline is helping, hard to tell . denies depression, endorses anxiety from everything going on. sertraline increased to 50 mg. PCP does not want to prescribed her ativan anymore. A greed to take over for low dose, and plan for short-term ideally while trying to get SSRI on board, but want to avoid long-term regular use. intake 10/16/23: CC: jonn mcrae anxiety, I'll tell you my story. I'm 88, never had any trouble before, very healthy, I'm a nurse for 45 yrs, I like to prevent things. 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 Had lightheadedness. Went to ER, they thought maybe clogged carotid, did work up, sent me to [facility], but CT said severe and doppler said no only 50-60% and they don't operate for that. So they sent me to Ear, so going through 12 weeks of therapy for that. but in the meantime to live with this since august is hard. So I took some ativan, 1/2 of one, they gave me 2 fills of 15 since mid september and I have 2 left. They say it will take a long time for that ear nerve to regenerate and need to finish that program but just in the first week. They say most people get better. I don't know if that med is addictive or if I can keep taking it. I drive, go shopping, do my things, but have to force myself with the anxiety a nd dizzy and problems with eye focus. [see xanax in PDMR prior to lorazepam]. says that was not for this reason, a few years ago was in doctor office and he thought I was a little anxious so would take once in a while. but did take more when this all started. And then they switched to the lorazepam. initial substance abuse hx:: Caffeine: max 2 c coffee Cigarette/vape: former ETOH: zero, denied past problematic use Cannabis: denied Other drug use or tx hx: denied Anxiety hx: always been kind of a worrier, but not extreme. I always think what would I do if this happened. Think about things too much. did not keep from falling asleep before this anyway. but do now. that A little queasy sometimes. very worried about the health problems. Think they gave me the xanax in past because I was very worried about my blood pressure. Panic attacks hx:just recently, I wake up sometimes with lump in stomach and feel hot. maybe couple times a week. Depression hx: I don't know if I'm depressed, maybe a little, feel down about this, and some lack of interest, though still doing what I have to. have been feeling more tired, been having decreased appetite-but I eat anyway. Denies SI, never been an issue Sleep hx: started melatonin recently, as having harder time falling asleep. and I wake up sometimes. avg 6 hrs Denied h x of psychiatric hospitalizations, suicide attempts or self-injury. Counseling:none Trauma/abuse hx: denied At this time dx DAMON, adjustment disorder, panic attacks, insomnia, started on sertraline 25 mg daily. taking lorazepam prescribed by PCP. * ROS: G eneral / Constitutional: Patient denies c hange in appetite, headache, night sweats, sleep disturbance. P atient complains of l ightheadedness. O phthalmologic: Patient complains of d ry eyes (seeing phyician about this today). E NT: Patient complains of d ecreased hearing, reports she has v estibular neuritis causing vertigo. see HPI for more detail. R espiratory: Patient denies p ain with inspiration, shortness of breath, wheezing, sputum production. P atient complains of o ccasional dry cough. C ardiovascular: Patient denies p alpitations, chest pain, dyspnea on exertion, swelling in hands / feet, dizziness. G astrointestinal: Patient denies a bdominal pain, constipation, diarrhea, nausea, vomiting, heartburn. P atient complains of r ecent unintentional weight loss due to GERD complications, now resolved and putting weight back on. M usculoskeletal: Patient denies j oint stiffness, muscle aches, muscle spasms, weakness. N eurologic: Patient denies b alance difficulty, confusion, tic, tremor.? P sychiatric: Patient denies a uditory / visual hallucinations, delusions, suicidal thoughts, sanna, psychosis. Teofilo [facility] for details. * Medical History: * Surgical History: C arotid endarterectomy ([id number]) right 06/03/2002Cataract surgery ([id number]) 07/15/2018 * Hospitalization/Major Diagno stic Procedure: D enies Past Hospitalization * Family History: M other: Dementia . S ister: Depressive disorder , Anxiety disorder . N on-Contributory. * Social History: T obacco Use: T obacco Control (Standard) T obacco use: F ormer smoker, H ow long has it been since you last smoked? G reater than 10 years. S ocial History Substance Use Do you or have you ever smoked tobacco?: Former smoker How much tobacco do you smoke?: None Do you or have you ever used any other forms of tobacco or nicotine?: No Do you or have you ever used e-cigarettes or vape?: Never used electronic cigarettes What was the date of your most recent tobacco screening?: 10/16/2023 Has tobacco cessation counseling been provided?: No What is your level of alcohol consumption?: None How many years have you consumed alcohol?: 3 Do you use any illicit or recreational drugs?: No Which illicit or recreational drugs have you used?: None Have you used IV drugs?: No What is your level of caffeine consumption?: Moderate Education and Occupation What is the highest grade or level of school you have completed or the highest degree you have received?: Associate degree: academic program Are you currently employed?: No Who is your employer?: None Marriage and Sexuality What is your relationship status?: Are you sexually active?: No How many children do you have?: 3 Home and Environment Are there any guns present in your home?: No Advance Directive Do you have an advance directive?: No Do you have a medical power of trademark attorney?: No. * Medications: T akingPriLOSEC 2.5 MG Packet as directed Orally Omeprazole Magnesium 20 MG Tablet Delayed Release 1 tablet 30 minutes before morning meal Orally Once a day Cyanocobalamin 1000 MCG/ML Solution Injection amLODIPine Besy-Benazepril HCl 5- 10 MG Capsule Oral Levothyroxine Sodium 100 MCG Tablet Oral Ofloxacin 0.30% Solution Ophthalmic Pravastatin Sodium 40 MG Tablet Oral LORazepam 1 MG Tablet TAKE 1/2 TO 1 (ONE-HALF TO ONE) TABLET BY MOUTH ONCE DAILY NEEDED FOR SEVERE ANXIETY Oral Sertraline HCl 100 MG Tablet 1 tablet every morning Oral Once a day Taking PriLOSEC 2.5 MG Packet as directed Orally Taking Omeprazole Magnesium 20 MG Tablet Delayed Release 1 tablet 30 minutes before morning meal Orally Once a day Taking Cyanocobalamin 1000 MCG/ML Solution Injection Taking amLODIPine Besy-Benazepril HCl 5-10 MG Capsule Oral Taking Levothyroxine Sodium 100 MCG Tablet Oral Taking Ofloxacin 0.30% Solution Ophthalmic Taking Pravastatin Sodium 40 MG Tablet Oral Taking LORazepam 1 MG Tablet TAKE 1/2 TO 1 (ONE-HALF TO ONE) TABLET BY MOUTH ONCE DAILY NEEDED FOR SEVERE ANXIETY Oral Taking Sertraline HCl 100 MG Tablet 1 tablet every morning Oral Once a day Not-TakingdiazePAM 5 MG Tablet TAKE 1 TABLET BY MOUTH EVERY 8 HOURS NEEDED FOR DIZZINESS Oral , Notes to Pharmacist: [id number],UnavailableMedication List reviewed and reconciled with the patientNot-Taking diazePAM 5 MG Tablet TAKE 1 TABLET BY MOUTH EVERY 8 HOURS NEEDED FOR DIZZINESS Oral , Notes to Pharmacist: [id number],UnavailableMedication List reviewed and reconciled with the patient * Allergies: I napsine: Side Effects - Onset Date 11/18/2023no[Allergies Verified] Objective: * Vitals: B P:186/78mm Hg, HR:93/min, Wt:111lbs, Wt-k.35 kg, Ht: 63.00 in, Ht-cm: 160.02 cm, BMI:19.66Index, Body Surface Area: 1.49. * Examination: P sychiatry: Appearance: w ell-groomed, appears stated age, anxious.? Abnormal body movements: n one. Affect / mood: a ppropriate, anxious. Attention: g ood. Attitude: c ooperative. Homicidal ideation: n one. Suicidal ideation: n one. Memory status: n o impairment noted. Degree of awareness of surroundings: w ithin normal limits.? Delusions: n o. Hallucinations: n o. Insight: g ood. Intellectual functioning: n o impairment noted. Judgement: g ood. Orientation: a wake, alert and oriented x 3. Perceptual disorders: n o perceptual disorder noted. Psychomotor activity: w ithin normal range. Speech / language: n ormal rate, volume, and articulation (RVR), clear and coherent, appropriate pitch/modulation. Thought content: a ppropriate. Thought process: i ntact. G eneral Examination: General appearance: a lert, pleasant, well-nourished and in no acute distress, elderly, comfortable. Assessment: * Assessment: 1. S omatic symptom disorder - F45.1 (Primary) 2 . P anic attacks - F41.0? 3. I nsomnia due to other mental disorder - F51.05 4 . H ypertension - I10 She was previously dx DAMON, b ut there is not apparent evidence of generalized anxiety. She denies being troubled by worries or anxioud about multiple factors. Her anxiety presently and as of late centers solely around her multiple health concerns. Previously diagnised adjustment disorder, however these factos have been ongoing beyond three months. Current appropriate dx somatic symptom disorder Plan: * Treatment: 2. P anic attacks Notes: denies recent panic episodes. see above 3. I nsomnia due to other mental disorder Notes: cont OTC melatonin 5mg as neededcontinue good sleep hygiene 4. H ypertension Notes: BP was high today. Monitor at home, follow up with PCP remain compliant with treatment recommended * Procedure Codes: 9 6127 BEHAV ASSMT W/SCORE & DOCD/STAND [id number] VISIT COMPLEXITY INHERENT TO ONGOING CARE RELATED TO A PATIENT'S SINGLE, SERIOUS CONDITION OR A COMPLEX CONDITION * Preventive Medicine: Counseling: B P Management: F IRST HYPERTENSIVE BP READING FOLLOW-UP PLAN: F ollow-up 1 month Follow up with your PCP, Frankie PERES RECOMMENDATION: Frankie peres education, REFERRAL TO ALTERNATIVE / PRIMARY CARE PROVIDER: Conrad german to general medical service ____. * Billing Information: * Visit Code: [id number] OFFICE OUTPATIENT VISIT 25 MINUTES DETAILED HISTORY AND EXAM/MODERATE MEDICAL DECISION MAKING. * Procedure Codes: 16246 BEHAV ASSMT W/SCORE & DOCD/STAND INSTRUMENT. G2211 VISIT COMPLEXITY INHERENT TO ONGOING CARE RELATED TO A PATIENT'S SINGLE, SERIOUS CONDITION OR A COMPLEX CONDITION. * IM[employer] EDUCATIONAL SPECIALIST Electronically co-signed by Mayco Guillen MD on 04/13/2024 at 03:07 PM MULTIMEDIA EDUCATIONAL SPECIALIST Sign off status: Completed true * Provider: Haleigh Fall Date: 1 06/08/2023 Generated for Kim piedra/Dayanara/Martha on: 0 07/15/2024 01:53 PM MULTIMEDIA EDUCATIONAL SPECIALIST History and Physical Notes * HPI (History of Present Illness) Category Sub-Category Detail Notes Category Not es History of Presenting Problem ALL PREVIOUS ENCOUNTERS SEEN WITH KARIN GUILLEN. SEE OLD NOTES. 03/09/2024 f/u: seems to be better after increasing sertraline, less anxious days and I'm doing more, going out and playing cards again and riding my bike, and the acid reflux seems to have resolved. Starting to eat more again. Even made pumpkin pie the other day. Still have some anxious days. Not had full panic attack. Denies depression, SI. No, I know it's going to get better. Sleep better too, falling asleep without melatonin. still has 20 left of ativan, taking max 3-4 days a week usually 1/2 tab only. Encouraged minimizing use. Denies falls. Medical: sees specialist at [facility] for the vestibular neuritis in April. cont sertraline 100mg daily, recommended counseling 02/05/2024 follow up: reported increased anxiety. Endorsed medical problems of ongoing dry eyes, vestibular neuritis, GERD complications. No appetite, endorsed nauseam dizziness. Endorsed panic attacks. increased sertraline this visit to 100 mg daily. Stopped Valium, was taking old lorazepam, refilled. encouraged sleep hygiene, taking melatonin. recommended counseling 12/23/2023 follow up: taking zoloft 50 mg, endorsed ongoing anxiety. Endorses stomach problems: nausea, bloating, verbalized issues with this prior to sertraline. started Prilosec. Sleeping okay. Deonte Wolf for another provider. sertraline increased to 75 mg daily. encouraged sleep hygiene, taking melatonin. recommended counseling 11/14/2023 follow up: complains of neuritis, doing exercises for it. causes dizziness nausea, ER, given valium for dizziness. Endorses not taking the Vaium or Ativan. thinks sertraline is helping, hard to tell . denies depression, endorses anxiety from everything going on. sertraline increased to 50 mg. PCP does not want to prescribed her ativan anymore. Agreed to take over for low dose, and plan for short-term ideally while trying to get SSRI on board, but want to avoid long-term regular use. intake 10/16/23: CC: well anxiety, I'll tell you my story. I'm 88, never had any trouble before, very healthy, I'm a nurse for 45 yrs, I like to prevent things. 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 Had lightheadedness. Went to ER, they thought maybe clogged carotid, did work up, sent me to [facility], but CT said severe and doppler said no only 50-60% and they don't operate for that. So they sent me to Ear, so going through 12 weeks of therapy for that. but in the meantime to live with this since august is hard. So I took some ativan, 1/2 of one, they gave me 2 fills of 15 since mid september and I have 2 left. They say it will take a long time for that ear nerve to regenerate and need to finish that program but just in the first week. They say most people get better. I don't know if that med is addictive or if I can keep taking it. I drive, go shopping, do my things, but have to force myself with the anxiety and dizzy and problems with eye focus. [see xanax in PDMR prior to lorazepam]. says that was not for this reason, a few years ago was in doctor office and he thought I was a little anxious so would take once in a while. but did take more when this all started. And then they switched to the lorazepam. initial substance abuse hx:: Caffeine: max 2 c coffee Cigarette/vape: former ETOH: zero, denied past problematic use Cannabis: denied Other drug use or tx hx: denied Anxiety hx: always been kind of a worrier, but not extreme. I always think what would I do if this happened. Think about things too much. did not keep from falling asleep before this anyway. but do now. that A little queasy sometimes. very worried about the health problems. Think they gave me the xanax in past because I was very worried about my blood pressure. Panic attacks hx: just recently, I wake up sometimes with lump in stomach and feel hot. maybe couple times a week. Depression hx: I don't know if I'm depressed, maybe a little, feel down about this, and some lack of interest, though still doing what I have to. have been feeling more tired, been having decreased appetite-but I eat anyway. Denies SI, never been an issue Sleep hx: started melatonin recently, as having harder time falling asleep. and I wake up sometimes. avg 6 hrs Denied hx of psychiatric hospitalizations, suicide attempts or self-injury. Counseling: none Trauma/abuse hx: denied At this time dx DAMON, adjustment disorder, panic attacks, insomnia, started on sertraline 25 mg daily. taking lorazepam prescribed by PCP Depression screening PHQ-9 Little inte rest or pleasure in doing things: Several days Feeling down, depressed, or hopeless: Se veral days Trouble falling or staying asleep, or sl eeping too much: Not at all Feeling tired or having little energy: N ot at all Poor appetite or overeating: Not at all Feeling bad about yourself o r that you are a failure, or have let yourself or your family down: Not at all Trouble concentrating on thi ngs, such as reading the newspaper or watching television: Not at all Moving or speaking so slowly that other people could have noticed; or the opposite, being so fidgety or restless that you have been moving around a lot more than usual: Not at all Thoughts that you would be b kika off or of hurting yourself in some way: Not at all Total Score: 2 Interpretation: Minimal Depression Intervention Depression Screening Findings: N egative Suicide Risk Assessment Performed: ____ Depression Screening DAMON-7 (2018 Edition) Beatrice g nervous, anxious, or on edge: Several days Not being able to stop or control worryi ng: Several days Worrying too much about different things : Not at all Trouble relaxing: Not at all Being so restless that it is hard to sit still: Not at all Becoming easily annoyed or irritable: No t at all Feeling afraid as if something awful briana ht happen: Not at all Total DAMON-7 Score: 2 If you checked any problems, how difficult have they made it for you to do your work, take care of things at home, or get along with other people?: Not difficult at all Interpretation of Total: (0 to 4) No Anx iety Examination Category Sub-Category Detail Notes Category Not es Psychiatry Appearance: well-groomed, appears stated age, anxious Attitude: cooperative Psychomotor activity: within normal rang e Abnormal body movements: none Attention: good Degree of awareness of surroundings: wit hin normal limits Orientation: awake, alert and gino ented x 3 Affect / mood: appropriate, anxious Speech / language: normal rate, volume, and articulation (RVR), clear and coherent, appropriate pitch/modulation Insight: good Judgement: good Thought process: intact Thought content: appropriate Perceptual disorders: no perceptual diso rder noted Suicidal ideation: none Homicidal ideation: none Intellectual functioning: no impairment noted Memory status: no impairment noted Delusions: no Hallucinations: no General Examination General appearance: alert, p leasant, well-nourished and in no acute distress, elderly, comfortable
--- OUTSIDE RECORDS SUMMARY | 2024-07-15 13:54 | XMS_ITS ---
Author Organization [facility] Address [address] [place] [address] Care Team Providers Care Vending Service Technician Name Role Phone Santo JAMES, Dr Lucia Primary Care Provider Dr. Sandeep Flores Unavailable [phone] ZZ-Migration, Provider Unavailable Unavailab le [facility]AS[facility] Encounter Medications Medication SIG (Take, Route, Frequency, Duration) Notes Start Date End Date Status PRAVACHOL 40 MG 1 TAB(S) ORALLY ONCE A DAY *Please review for potential replacement for e-prescription and drug interaction check* Active Calcium 500+D 500 MG-10 MCG 1 TAB(S) CHEWED 2 TIMES A DAY *Please review and pick correct strength[facility]ulatio n [facility]. If intended option is not shown, discontinue and re-order from Quick Search* Active B-12 1000 MCG 1 tab(s) orally once a month Active Levothyroxine Sodium 100 MCG 1 tab(s) orally once a day Active Lotrel 5-10 MG 1 cap(s) orally once a day Active Ativan 1 MG 1 tab(s) orally 3 times a day Active Fish Oil 500 MG 1 cap(s) orally once a day Active Encounters Encounter Location Date Provider Diagnosis [facility] [address] [place] [address] 11/16/2023 Provider ZZ-Migration Plan Of Treatment No Information Progress Notes * Blade KENNEYOB: [birth year] (89 yo F)Acc No.[id number]:11/16/2023 Patient: Sonja BARKER Provider: Moreno Harrison :1935 A ge:88 Y S ex:Female Date:11/16/2023 Address:[address] [place], [place] [id number] Pcp:Dr Khari Blanchard MD Subjective: * Chief Complaints: * 1 . [facility]. * Medical History: * Medications: T aking PRAVACHOL 40 MG TABLET 1 TAB(S) ORALLY ONCE A DAY , Notes to Pharmacist: *Please review for potential replacement for e-prescription and drug interaction check*, Taking Ativan 1 MG Tablet 1 tab(s) orally 3 times a day , Taking Fish Oil 500 MG Capsule 1 cap(s) orally once a day , Taking Calcium 500+D 500 MG-10 MCG TABLET, CHEWABLE 1 TAB(S) CHEWED 2 TIMES A DAY , Notes to Pharmacist: *Please review and pick correct strength-formulation [facility] options. If intended option is not shown, discontinue and re-order from Quick Search*, Taking B-12 1000 MCG Tablet 1 tab(s) orally once a month , Taking Levothyroxine Sodium 100 MCG Tablet 1 tab(s) orally once a day , Taking Lotrel 5-10 MG Capsule 1 cap(s) orally once a day Objective: * Vitals: Assessment: Plan: * Treatment: * Billing Information: * Visit Code: * Procedure Codes: * Electronic signature of Jumana GRISSOM-Migration on 07/15/2024 at 01:53 PM PUFF IRON OPERATOR Sign off status: Pending * Provider: Moreno Harrison Date: 11/16/2023 Generated for Kim piedra/Dayanara/Martha on: 0 07/15/2024 01:53 PM PUFF IRON OPERATOR
--- OUTSIDE RECORDS SUMMARY | 2024-07-15 13:54 | XMS_ITS | Clinical Summary ---
Author Organization [facility] Address [address] [place] [address] Care Team Providers Care Automotive Technician Instructor Name Role Phone Khari Blanchard MD Primary Care Provider [phone] Antonio Thorne MD Unavailable Allergies No known active allergies Medications amLODIPine-benazepr il (LOTREL) 5-10 MG capsule Take 1 capsule by mouth daily. Active levothyroxine (SYNTHROID) 100 MCG tablet Take 1 tablet (100 mcg total) by mouth every morning. Active pravastatin (PRAVACHOL) 40 MG tablet Take 1 tablet (40 mg total) by mouth nightly at bedtime. Active Calcium Carb-Cholecalcifero l (CALCIUM 500 + D OR) Take 1 tablet by mouth daily. Active Multiple Vitamin (MULTIVITAMIN ADULT OR) Take 1 tablet by mouth daily. Active Windsor-3 Fatty Acids (FISH OIL OMEGA-3 OR) Take 1,000 mg by mouth 2 (two) times a day. Active cyanocobalamin (B-12) 1000 MCG/ML injection Inject 1 mL (1,000 mcg total) into the muscle every 30 (thirty) days. Active polyvinyl alcohol (LIQUIFILM/ARTIFICI AL TEARS) 1.4 % ophthalmic solution Place 1 drop into both eyes as needed. Active sertraline (ZOLOFT) 25 MG tablet Take 1 tablet (25 mg total) by mouth daily. Active LORazepam (ATIVAN) 1 MG tablet Take 1 tablet (1 mg total) by mouth every 6 (six) hours as needed for Anxiety. Active diazePAM (VALIUM) 5 MG tabletIndications:L eft chronic vestibular neuritis,Dizziness, Nausea Take 1 tablet (5 mg total) by mouth every 8 (eight) hours as needed (dizziness). 30 tablet 4 Active ondansetron (ZOFRAN-ODT) 4 MG disintegrating tablet Take 1 tablet (4 mg total) by mouth every 6 (six) hours as needed for Nausea. 30 tablet 4 Active prochlorperazine (COMPAZINE) 10 MG tablet Take 1 tablet (10 mg total) by mouth every 6 (six) hours as needed (nausea). 30 tablet 4 Active Social History Tobacco Use Types Packs/Day Years Used Date Smoking Tobacco: Former Cigarettes Smokeless Tobacco: Never Alcohol Use Standard Drinks/Week Comments Not Currently 0 (1 standard drink = 0.6 oz pur e alcohol) Comments Unknown Sex and Gender Information Value Date Recorded Sex Assigned at Not on file Legal Sex Female 5:43 PM CDT Gender Identity Not on file Sexual Orientation Not on file Last Filed Vital Signs Vital Sign Reading Time Taken Comments Blood Pressure 149/72 11/07/2023 6:40 PM CDT Pulse 83 11/07/2023 6:40 PM CDT Temperature 36.4 C (97.5 F) 11/07/2023 6:40 PM CDT Respiratory Rate 16 11/07/2023 6:40 PM CDT Oxygen Saturation 98% 11/07/2023 6:40 PM CDT Inhaled Oxygen Concentration - - Weight 49.2 kg (108 lb 7.5 oz) 11/07/2023 11:50 AM CDT Height 160 cm (5' 3 ) 11/07/2023 11:50 AM CDT Body Mass Index 19.21 11/07/2023 11:50 AM CDT Plan of Treatment Health Maintenance Due Date Last Done Comments DTaP, Tdap and Td Vaccines ( 1 - Tdap) 1956 Zoster Vaccines (1 of 2) 1987 Annual Medicare Wellness Visit 2002 Pneumococcal Vaccine: 65+ Years (1 of 1 - PCV) 2002 RSV Immunization or 60+ Years (1 - 1-dose 75+ series) 2012 COVID-19 Vaccine (3 - 2023-2 5 season) 2024 08/07/2020, 07/17/2020 Influenza Adult (#1) 2024 03/31/2020 Meningococcal B Vaccine Aged Out No l onger eligible based on patient's age to complete this topic Meningococcal Vaccine Aged Out No cruzito keenan eligible based on patient's age to complete this topic RSV Immunizations Under 20 Months Aged Out No longer eligible b ased on patient's age to complete this topic Insurance MEDICARE [facility] Care Teams Automotive Technician Instructor Relationship Specialty Start Date End Date Khari Blanchard MD [address] [place] [id number] PCP - General FAMILY PRACTICE 09/10/23 [place] [address] [place] [address] OTOLARYNGOLOGY 11/07/23
--- OUTSIDE RECORDS SUMMARY | 2024-07-15 13:54 | XMS_ITS ---
Author Organization [facility] Address [address] [place] [address] Care Team Providers Care Manager Mortgage Name Role Phone Santo JAMES, Dr Lucia Primary Care Provider Dr. 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, Dizziness Medications Medication SIG (Take, Route, Frequency, Duration) Notes Start Date End Date Status LEVOTHYROXINE 100 mcg (0.1 mg) 1 tab(s) orally once a day Active VITAMIN B12 1000 mcg 1 tab(s) orally onc e a month Active LOTREL 5 mg-10 mg 1 cap(s) orally once a day Active CALCIUM 500+D 500 mg-10 mcg 1 tab(s) jay wed 2 times a day Active FISH OIL 500 mg 1 cap(s) orally once a day Active ATIVAN 1 mg 1 tab(s) orally 3 ti mes a day Active PRAVACHOL 40 mg 1 tab(s) orally once a day Active Problems Problem Type SNOMED Code ICD Code Onset Dates Problem Status W/U Status Risk Notes Problem Orthostatic hypotension (73652443) Orthostatic hypotension (I95.1) Active confirmed Problem Anxiety disorder (839837484) Anxiety disorder, unspecified (F41.9) Active confirmed Problem Left carotid artery occlusion (728799645343038 ) Occlusion and stenosis of left carotid artery (I65.22) Active confirmed Vital Signs Blood pressure systolic 162 mm Hg 09/25/19 Blood pressure diastolic 81 (lying) mm Hg 2023 Respiratory Rate 18 /min 09/25/2023 Height 63 in 09/25/2023 Weight 112.2 lbs 09/25/2023 BMI 19.87 kg/m2 09/25/2023 Oximetry 97 % 09/25/2023 Encounters Encounter Location Date Provider Diagnosis [facility] [address] [place] [address] 09/25/2023 Sandeep Abbasi Dizziness and giddiness R42 ; Orthostatic hypotension I95.1 ; Anxiety disorder, unspecified F41.9 and Occlusion and stenosis of left carotid artery I65.22 Assessments Encounter Date Diagnosis (ICD Code) Assessment Notes Treatment Notes Treatment Clinical Notes Section Notes 09/25/2023 Dizziness and giddiness (ICD-10 - R42) Recommend VNG study. She tells me that she has an ENT appt later today and believes that they are going to do this study. I asked her to take my card and have records sent to me. She has mild chronic orthostatic hypotension, but that is not the issue, symptoms from this are clearly recognizable and distinct from the dizziness that she is trying to describe. I cannot ascribe the complaint to any of her medications. Neurological exam benign/normal for age. Neuroimaging unremarkable for age with no explanatory pathology. Vascular imaging with incidental, asymptomatic L ICA stenosis unrelated to symptoms with recommendation for medical management. Cardiac evaluation unremarkable. Considerations would include: atypical presentation of peripheral vestibulopathy without classic vertigo or vestibular migraine (unlikely given no migraine history and no headaches). Finally, anxiety is compounding her symptom. She needs a VNG study. 09/25/2023 Orthostatic hypotension (ICD-10 - I95.1) Not responsible for symptoms. Increase fluid intake. She has mild chronic orthostatic hypotension, but that is not the issue, symptoms from this are clearly recognizable and distinct from the dizziness that she is trying to describe. I cannot ascribe the complaint to any of her medications. Neurological exam benign/normal for age. Neuroimaging unremarkable for age with no explanatory pathology. Vascular imaging with incidental, asymptomatic L ICA stenosis unrelated to symptoms with recommendation for medical management. Cardiac evaluation unremarkable. Considerations would include: atypical presentation of peripheral vestibulopathy without classic vertigo or vestibular migraine (unlikely given no migraine history and no headaches). Finally, anxiety is compounding her symptom. She needs a VNG study. 09/25/2023 Anxiety disorder, unspecified (ICD-10 - F41.9) Advised caution with lorazepam dosing at her age. She has mild chronic orthostatic hypotension, but that is not the issue, symptoms from this are clearly recognizable and distinct from the dizziness that she is trying to describe. I cannot ascribe the complaint to any of her medications. Neurological exam benign/normal for age. Neuroimaging unremarkable for age with no explanatory pathology. Vascular imaging with incidental, asymptomatic L ICA stenosis unrelated to symptoms with recommendation for medical management. Cardiac evaluation unremarkable. Considerations would include: atypical presentation of peripheral vestibulopathy without classic vertigo or vestibular migraine (unlikely given no migraine history and no headaches). Finally, anxiety is compounding her symptom. She needs a VNG study. 09/25/2023 Occlusion and stenosis of left carotid artery (ICD-10 - I65.22) Incidental, agree with medical management She has mild chronic orthostatic hypotension, but that is not the issue, symptoms from this are clearly recognizable and distinct from the dizziness that she is trying to describe. I cannot ascribe the complaint to any of her medications. Neurological exam benign/normal for age. Neuroimaging unremarkable for age with no explanatory pathology. Vascular imaging with incidental, asymptomatic L ICA stenosis unrelated to symptoms with recommendation for medical management. Cardiac evaluation unremarkable. Considerations would include: atypical presentation of peripheral vestibulopathy without classic vertigo or vestibular migraine (unlikely given no migraine history and no headaches). Finally, anxiety is compounding her symptom. She needs a VNG study. Plan Of Treatment Treatment Notes Assessment Notes Dizziness and giddiness Recommend VNG st y. She tells me that she has an ENT appt later today and believes that they are going to do this study. I asked her to take my card and have records sent to me. Orthostatic hypotension Not responsible for symptoms. Increase fluid intake. Anxiety disorder, unspecified Advised ca ution with lorazepam dosing at her age. 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 She is self-referred. She is an 88-year-old woman with a history of hypothyroidism, HTN, HLD, h/o B12 deficiency, PAD s/p R CEA with left ICA stenosis (no history of TIA/stroke), orthostatic hypotension, dry eye syndrome. She is here for dizziness. This is a new problem that started about 6 weeks ago. She reports that this is a new symptom that she has never experienced previously. She was recently hospitalized for this problem. Per referring notes prior testing showed the followin) Brain MRI showed chronic small vessel disease without large vessel/cortical infarct. 2) Head/Neck CTA showed no large vessel stenosis or occlusion intracranially; there was focal stenosis L ICA. 3) Subsequent Carotid Dopplers showed < 50% R ICA stenosis, 50-69% L ICA stenosis. 4) Echocardiogram showed EF 55-60%, no significant valvulopathy, diastolic dysfunction. 5) EKG/Telemetry showed sinus rhythm. She was noted to be orthostatic, but patient reports that this is preexisting and is not the dizziness that she is experiencing. They did [place]-Hallpike testing and it was negative at the bedside. She saw Vascular Surgery and they recommended medical management for the L ICA. She has difficulty describing dizziness . She is not describing vertigo or sense of motion, she is not describing imbalance or unsteadiness, but rather she is describing that she feels like she is in another zone or that her head feels full (no headache or pain). She has a history of orthostasis, but that feeling is transient and different from the feeling that she is trying to describe now. She initially attributed this to starting Restasis eye drops and having increased tear production, but she is not sure. This feeling is constant, it varies in the degree that it bothers her but is never not present, this feeling is not positional. She reports that this feeling can make her feel restricted appetite and/or queasiness but not roe nausea. She never previously had any history compatible with migraine. Meclizine did not help. She has developed a high degree of anxiety about this symptom and taking 0.5 mg (1/2 pill) 2-3 times daily as needed; this reduces her anxiety but does not improve the dizziness feeling. She is still driving and doing all her own household affairs, but she stopped riding her bicycle because she was apprehensive about dizziness. * ROS: C ONSTITUTIONAL: Positive for P atient denies fevers, chills, sweats, unintended weight loss, loss of appetite, or chronic fatigue. E NT: Positive P atient denies ear fullness or pain or sinus pain. R ESPIRATORY: Positive for P atient denies shortness of breath or wheezing. O PHTHALMOLOGY: Positive for R eviewed and except as mentioned above in the HPI is negative. E NDOCRINOLOGY: Positive for P atient denies heat intolerance, cold intolerance, polyuria, elevated blood sugar, chronic fatigue. C ARDIOLOGY: Positive for P atient denies palpitations or chest pain.? G ASTROENTEROLOGY: Positive for P atient denies diarrhea, melena, bloody stools, or abdominal pain. U ROLOGY: Positive for P atient denies urinary incontinence or urinary dysfunction. D ERMATOLOGY: Positive for P atient denies rash or hives. ? N EUROLOGY: Positive for R eviewed and except as mentioned above in the HPI is negative. H EMATOLOGY/LYMPH: Positive for P atient denies history of excessive bruising or bleeding diasthesis. M USCULOSKELETAL: Positive for P atient denies extremity joint pain or swelling. P SYCHOLOGY: Positive for R eviewed and except as discussed above in the HPI is otherwise negative. * Medical History: * Surgical History: R CEA * Hospitalization/Major Diagno stic Procedure: * Family History: No pertinent family history. * Social History: Smoked as a young women but quite almost 50 years ago. No alcohol. Lives independently. * Medications: T akingPravachol 40 mg tablet 1 tab(s) orally once a day Ativan 1 mg tablet 1 tab(s) orally 3 times a day Fish Oil 500 mg capsule 1 cap(s) orally once a day Calcium 500+D 500 mg-10 mcg tablet, chewable 1 tab(s) chewed 2 times a day Vitamin B12 1000 mcg tablet 1 tab(s) orally once a month levothyroxine 100 mcg (0.1 mg) tablet 1 tab(s) orally once a day Lotrel 5 mg-10 mg capsule 1 cap(s) orally once a day Medication List reviewed and reconciled with the patientTaking Pravachol 40 mg tablet 1 tab(s) orally once a day Taking Ativan 1 mg tablet 1 tab(s) orally 3 times a day Taking Fish Oil 500 mg capsule 1 cap(s) orally once a day Taking Calcium 500+D 500 mg-10 mcg tablet, chewable 1 tab(s) chewed 2 times a day Taking Vitamin B12 1000 mcg tablet 1 tab(s) orally once a month Taking levothyroxine 100 mcg (0.1 mg) tablet 1 tab(s) orally once a day Taking Lotrel 5 mg-10 mg capsule 1 cap(s) orally once a day Medication List reviewed and reconciled with the patient * Allergies: N .K.D.A.no[Allergies Verified] Objective: * Vitals: B P:162/81 (lying), Repeat BP:138/74 (standing), HR:76/min, RR:18/min, Pulse Oximetry:97%, Ht: 63 in, Wt: 112.2 lbs, BMI:19.87Index. * Examination: G eneral examination: General appearance: P leasant, well-developed, no distress.? Mildly anxious affect. HEENT: N o papilledema. Oral cavity: N ormal, no lesions. Neck, thyroid : S upple, non-tender, no anterior cervical lymphadenopathy. Heart: R RR, S1-S2, no murmurs. There is a L carotid bruit, not present on R. Lungs: C lear to auscultation and percussion in all lung baxter. Abdomen: S oft, NT/ND, normal active bowel sounds. Neurologic exam: A lert and oriented x 4. Fluent speech. Intact recall, fund of knowledge. Appropriate affect. PERRL. EOMI without nystagmus. No visual field cut. Facial sensation intact to light touch and pinprick in bilateral V1/V2/V3. Facial movements normal and symmetric. Hearing intact to finger rub bilaterally. Palate symmetrically upgoing. Tongue midline. Teja-Hallpike negative bilaterally. Motor 5/5 strength in all extremities. Normal tone. Reflexes 2+/2 and symmetric in all extremities. Bilateral flexor plantar responses. Sensory exam intact to light touch, pinprick, vibration in all extremities for age. Cerebellar testing no ataxia or dysmetria; slight bilateral postural/action tremor. No parkinsonism. Gait normal, negative Romberg. Her exam is unremarkable for age, only noting subtle hand tremors which could be in part due to excessive physiologic tremor from anxiety. Skin: N ormal, no rash, urticaria, angioedema. Peripheral pulses: n ormal (2+) bilaterally. Back: N o cervical or periscapular trigger points. Extremities: N ormal ROM, no clubbing, no cyanosis, no edema. Assessment: * Assessment: 1. D izziness and giddiness - R42 (Primary) 2 . O rthostatic hypotension - I95.1 3 . A nxiety disorder, unspecified - F41.9 4 . O cclusion and stenosis of left carotid artery - I65.22, Moderate L ICA stenosis She has mild chronic orthost atic hypotension, but that is not the issue, symptoms from this are clearly recognizable and distinct from the dizziness that she is trying to describe. I cannot ascribe the complaint to any of her medications. Neurological exam benign/normal for age. Neuroimaging unremarkable for age with no explanatory pathology. Vascular imaging with incidental, asymptomatic L ICA stenosis unrelated to symptoms with recommendation for medical management. Cardiac evaluation unremarkable. Considerations would include: atypical presentation of peripheral vestibulopathy without classic vertigo or vestibular migraine (unlikely given no migraine history and no headaches). Finally, anxiety is compounding her symptom. She needs a VNG study. Plan: * Treatment: 2. O rthostatic hypotension Notes:Not responsible for symptoms. Increase fluid intake. 3. A nxiety disorder, unspecified Notes:Advised caution with lorazepam dosing at her age. 4. O cclusion and stenosis of left carotid artery Notes: Incidental, agree with medical management * Procedure Codes: G 8427 DOC MEDS VERIFIED W/PT OR RE * Follow Up: T o be determined depending upon VNG (Reason: Evaluation and Management) * Billing Information: * Visit Code: 04743 Office Visit, New Pt., Level 4. Modifiers: 25 * Procedure Codes: G8427 DOC MEDS VERIFIED W/PT OR RE. 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 She is self-referred. She is an 88-year-old woman with a history of hypothyroidism, HTN, HLD, h/o B12 deficiency, PAD s/p R CEA with left ICA stenosis (no history of TIA/stroke), orthostatic hypotension, dry eye syndrome. She is here for dizziness. This is a new problem that started about 6 weeks ago. She reports that this is a new symptom that she has never experienced previously. She was recently hospitalized for this problem. Per referring notes prior testing showed the followin) Brain MRI showed chronic small vessel disease without large vessel/cortical infarct. 2) Head/Neck CTA showed no large vessel stenosis or occlusion intracranially; there was focal stenosis L ICA. 3) Subsequent Carotid Dopplers showed < 50% R ICA stenosis, 50-69% L ICA stenosis. 4) Echocardiogram showed EF 55-60%, no significant valvulopathy, diastolic dysfunction. 5) EKG/Telemetry showed sinus rhythm. She was noted to be orthostatic, but patient reports that this is preexisting and is not the dizziness that she is experiencing. They did Teja-Hallpike testing and it was negative at the bedside. She saw Vascular Surgery and they recommended medical management for the L ICA. She has difficulty describing dizziness . She is not describing vertigo or sense of motion, she is not describing imbalance or unsteadiness, but rather she is describing that she feels like she is in another zone or that her head feels full (no headache or pain). She has a history of orthostasis, but that feeling is transient and different from the feeling that she is trying to describe now. She initially attributed this to starting Restasis eye drops and having increased tear production, but she is not sure. This feeling is constant, it varies in the degree that it bothers her but is never not present, this feeling is not positional. She reports that this feeling can make her feel restricted appetite and/or queasiness but not roe nausea. She never previously had any history compatible with migraine. Meclizine did not help. She has developed a high degree of anxiety about this symptom and taking 0.5 mg (1/2 pill) 2-3 times daily as needed; this reduces her anxiety but does not improve the dizziness feeling. She is still driving and doing all her own household affairs, but she stopped riding her bicycle because she was apprehensive about dizziness Examination Category Sub-Category Detail Notes Category Not es General examination HEENT: No papilledema Neck, thyroid : Supple, non-tender, no anterior cervical lymphadenopathy Heart: RRR, S1-S2, no murmu rs. There is a L carotid bruit, not present on R Lungs: Clear to auscultatio n and percussion in all lung baxter Abdomen: Soft, NT/ND, normal active bowel sounds Extremities: Normal ROM, no clubb ing, no cyanosis, no edema General appearance: Pleasant, well-devel oped, no distress. Mildly anxious affect Skin: Normal, no rash, urt icaria, angioedema Neurologic exam: Alert and oriented x 4. Fluent speech. Intact recall, fund of knowledge. Appropriate affect. PERRL. EOMI without nystagmus. No visual field cut. Facial sensation intact to light touch and pinprick in bilateral V1/V2/V3. Facial movements normal and symmetric. Hearing intact to finger rub bilaterally. Palate symmetrically upgoing. Tongue midline. [place]-Hallpike negative bilaterally. Motor 5/5 strength in all extremities. Normal tone. Reflexes 2+/2 and symmetric in all extremities. Bilateral flexor plantar responses. Sensory exam intact to light touch, pinprick, vibration in all extremities for age. Cerebellar testing no ataxia or dysmetria; slight bilateral postural/action tremor. No parkinsonism. Gait normal, negative Romberg. Her exam is unremarkable for age, only noting subtle hand tremors which could be in part due to excessive physiologic tremor from anxiety Oral cavity: Normal, no lesions Peripheral pulses: normal (2+) bilatera lly Back: No cervical or peris capular trigger points
--- OUTSIDE RECORDS SUMMARY | 2024-07-15 13:54 | XMS_ITS ---
Author Organization [facility] As [facility] Address [address] [place] [address] Care Team Providers Care Carry In Worker Name Role Phone Santo JAMES, Khari Primary Care Provider Unavailab Yeni Dhaliwal Unavailable [phone] Magdalena Duckworth Unavailable [phone] Allergies Allergen (clinical drug ingredient) Drug/Non Drug Allergy documented on EMR Reaction Allergy Type Onset Date Status Inapsine Unknown Drug Allergy 11/18/2023 Active REASON FOR VISIT follow up Medications Medication SIG (Take, Route, Frequency, Duration) Notes Start Date End Date Status Cyanocobalamin 1000 MCG/ML Injection 10/16/2023 Active Omeprazole Magnesium 20 MG 1 tablet 30 minutes before morning meal Orally Once a day Active LORazepam 1 MG TAKE 1/2 TO 1 (ONE-HALF TO ONE) TABLET BY MOUTH ONCE DAILY NEEDED FOR SEVERE ANXIETY Oral for 30 Days Active diazePAM 5 MG TAKE 1 TABLET BY MOUTH EVERY 8 HOURS NEEDED FOR DIZZINESS Oral for 10 Days [id number],Unavail able Not-Taking amLODIPine Besy-Benazepril HCl 5-10 MG Oral 10/16/2023 Active Pravastatin Sodium 40 MG Oral 10/16/2023 Active Levothyroxine Sodium 100 MCG Oral 10/16/2023 Active Ofloxacin 0.30% Ophthalmic 10/16/2023 Ac tive Sertraline HCl 100 MG 1 tablet every morning Oral Once a day for 30 days Active Social History Sex Assigned At : Social History Observation Description Sex Assigned At Female Section Notes: Social History Substance Use Do [...] Do you have a medical power of oyster tonger?: No Vital Signs Blood pressure systolic 162 mm Hg 03/09/20 24 Blood pressure diastolic 70 mm Hg 024 Heart Rate 84 /min 03/09/2024 Height 63.00 in 03/09/2024 Weight 107 lbs 03/09/2024 BMI 18.95 kg/m2 03/09/2024 Height-cm 160.02 cm 03/09/2024 Weight-kg 48.53 kg 03/09/2024 Encounters Encounter Location Date Provider Diagnosis [facility] [employer] 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 ; Panic attacks F41.0 ; Generalized anxiety disorder F41.1 and Insomnia due to other mental disorder F51.05 Assessments Encounter Date Diagnosis (ICD Code) Assessment Notes Treatment Notes Treatment Clinical Notes Section Notes 03/09/2024 Adjustment disorder with mixed anxiety and depressed mood (ICD-10 - F43.23) improvement cont sertraline 100mg daily recommend couseling SLUMS screening completed today by staff, scored 27/30 reviewed PDMR, last fill 02/06/24 per me, alprazolam having noticeable improvements with SSRI increase, tolerating, discuss options, shared decision to allow more time for further benefit before consider increase again. Review r/b/se of meds, education course, minimize bzo. 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 - F51.05) taking OTC melatonin 5mg qhs prn insomnia practice good sleep hygiene have given sleep hygiene handout 03/09/2024 Other Plan Of Treatment Medication Medication Name Sig Start Date Stop Date Notes Sertraline HCl 100 MG 1 tablet every mor vivek Oral Once a day for 30 days Treatment Notes Assessment Notes Adjustment disorder with mix ed anxiety and depressed mood improvement cont sertraline 100mg daily recommend couseling Panic attacks cont lorazepam 1mg, take 1/2 to 1 tab daily prn, minimize use; does not need refill do not fill with other providers or take similar medication/bzo minimize caffeine Generalized anxiety disorder meds as above recommend counseling Insomnia due to other mental disorder taking OTC melatonin 5mg qhs prn insomnia practice good sleep hygiene Next Appt Details Follow Up: 1 month, Reason: Provider Name:Yeni mar, 08/17/2024 03:00:00 PM, [facility] [address], [facility] [address], [place], [address], Progress Notes * AINSLEY FIELDOB: [birth year] (88 yo F)Acc No.[id number]:03/09/2024 Patient: Deepika MICHAELROSALES FlorentinoLYN Provider: KARIN MENARD :1935 A ge:88 Y S ex:Female Date:03/09/2024 Address:[address] [place] [address] Subjective: * Chief Complaints: * 1 . Follow up. * HPI: D epression Screening: DAMON-7 (2018 Edition) F eeling nervous, anxious, or on edge?Several days, N ot being able to stop or control worrying S everal days, W orrying too much about different things S everal days, T rouble relaxing N ot at all, B eing so restless that it is hard to sit still N ot at all, B ecoming easily annoyed or irritable?Not at all, T otal DAMON-7 Score 3 , I f you checked any problems, how difficult have they made it for you to do your work, take care of things at home, or get along with other people??Somewhat difficult, I nterpretation of Total ( 0 to 4) No Anxiety. D epression screening: PHQ-9 L ittle interest or pleasure in doing things S everal days, F eeling down, depressed, or hopeless S everal days, T rouble falling or staying asleep, or sleeping too much N ot at all, F eeling tired or having little energy S everal days, P oor appetite or overeating S everal days, F eeling bad about yourself or that [...] N ot at all, T otal Score 4 , I nterpretation M inimal Depression. I ntervention D epression Screening Findings P osDeepika colbert ollow-Up for Depression M anagement of mental health treatment, S uicide Risk Assessment Performed 1 , A dditional Evaluation for Depression P sychiatric interview and evaluation, N anu of the standardized tool used for adult depression screening: P atient Health Questionnaire (PHQ-9). 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 increased sertraline, denies side effects seems to be better, less anxious days and I'm doing more, [...] days a week usually 1/2 tab only. Denies falls. Medical: sees s pecialist at [facility] or the vestibular neuritis in April. G eneral Follow Up: ongoing notes: INITIAL S UBSTANCE USE HX: Caffeine: max 2 c coffee Cigarette/vape: former [...] or self-injury. Counseling: none Trauma/abuse hx: denied intake 10/16/23: w ell anxiety, I'll tell you my story. I'm 88, never had any trouble before, very healthy, I'm a nurse for 45 yrs, I like to prevent things. 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 Had lightheadedness. Went to ER, they thought maybe clogged carotid, did work up, sent me to [facility], but CT said severe and doppler said [...] dizzy and problems with eye focus. [see vi in PDMR prior to lorazepam]. says that was not for this reason, a few years ago was in doctor office and he thought I was a little anxious so would take once in a while. but did take more when this all started. And then they switched to the lorazepam. * ROS: P sychiatric: Comments S lety JONAS for details. * Medical History: P micaela: Adjustment disorder with mixed anxiety and depressed mood, Generalized anxiety disorder, Insomnia disorder related to another mental disorder, Panic attack, ,. * Surgical History: C arotid endarterectomy ([id number]) right 06/03/2002, Cataract surgery ([id number]) 07/15/2018. * Hospitalization/Major Diagno stic Procedure: D enies Past Hospitalization. * Family History: M other: Dementia . S ister: Depressive disorder , Anxiety disorder . * Social History: M igrated Social History: M igrated Social History: Alcohol Intake: None 10/16/2023,Tobacco Years: Former smoker 10/16/2023. S ocial History Substance Use Do you [...] Do you have a medical power of oyster tonger?: No. * Medications: T aking Sertraline HCl 100 MG Tablet 1 tablet every morning Oral Once a day , Notes to Pharmacist: d/c 50mg tab, Taking Omeprazole Magnesium 20 MG Tablet Delayed Release 1 tablet 30 minutes before morning meal Orally Once a day , Taking Cyanocobalamin 1000 MCG/ML Solution Injection , Taking amLODIPine Besy-Benazepril HCl 5-10 MG Capsule Oral , Taking Levothyroxine Sodium 100 MCG Tablet Oral , Taking Ofloxacin 0.30% Solution Ophthalmic , Taking Pravastatin Sodium 40 MG Tablet Oral , Taking LORazepam 1 MG Tablet TAKE 1/2 TO 1 (ONE-HALF TO ONE) TABLET BY MOUTH ONCE DAILY NEEDED FOR SEVERE ANXIETY Oral , Not-Taking diazePAM 5 MG Tablet TAKE 1 TABLET BY MOUTH EVERY 8 HOURS NEEDED FOR DIZZINESS Oral , Notes to Pharmacist: [id number],Unavailable, Discontinued LORazepam 1 MG Tablet 1/2 to 1 tab daily Oral Once a day As needed for severe anxiety/panic, Medication List reviewed and reconciled with the patient * Allergies: I napsine: Side Effects - Onset Date 11/18/2023. Objective: * Vitals: B P:162/70mm Hg, HR:84/min, Wt:107lbs, Wt-k.53 kg, Ht: 63.00 in, Ht-cm: 160.02 cm, BMI:18.95Index, Body Surface Area: 1.47. * Examination: F unctional Assessment: Sylvester Index of ADL . Physical Functioning . 1 point for independence, 0 for help. P sychiatry: Dementia . Appearance: C onstitutional: Appearance alert, well-groomed, slender, clean, appears well rested. No acute physical distress. Behavior: eye contact good, cooperative, pleasant. Abnormal body movements: n one. Affect / mood: a nxious. Attention: g ood. Attitude: c ooperative. Suicidal ideation: n one. Memory status: n o impairment noted; SLUMS . Degree of awareness of surroundings: w ithin normal limits.? Delusions: n o. Hallucinations: n o. Insight: g ood. Intellectual functioning: n o impairment noted. Judgement: g ood. Orientation: a wake, alert and oriented x 3. Perceptual disorders: n o perceptual disorder noted. Psychomotor activity: w ithin normal range. Speech / language: a ppropriate pitch/modulation, clear and coherent, normal rate, volume, and articulation (RVR), proper grammar used. Thought content: a ppropriate. Thought process: i ntact. Assessment: * Assessment: 1. A djustment disorder with mixed anxiety and depressed mood - F43.23 (Primary) ?2. P anic attacks - F41.0 3 . G eneralized anxiety disorder - F41.1 ? 4 . I nsomnia due to other mental disorder - F51.05 Plan: * Treatment: 2. P anic attacks Notes: cont lorazepam 1mg, take 1/2 to 1 tab daily prn, minimize use; does not need refill do not fill with other providers or take similar medication/bzo minimize caffeine 3. G eneralized anxiety disorder Notes: meds as above recommend counseling Clinical Notes: hx intermittent bzo use in past years 4. I nsomnia due to other mental disorder Notes: taking OTC melatonin 5mg qhs prn insomnia practice good sleep hygiene Clinical Notes: have given sleep hygiene handout * Procedure Codes: 9 6127 BEHAV ASSMT W/SCORE & DOCD/STAND INSTRUMENT, G8510 NEG SCR D PT NOT ELIG F/U/PLN DOC * Follow Up: 1 month * Billing Information: * Visit Code: 61520 OFFICE OUTPATIENT VISIT 25 MINUTES DETAILED HISTORY AND EXAM/MODERATE MEDICAL DECISION MAKING. * Procedure Codes: 21890 BEHAV ASSMT W/SCORE & DOCD/STAND INSTRUMENT. G8510 NEG SCR D PT NOT ELIG F/U/PLN DOC. 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 increased sertraline, denies side effects seems to be better, less anxious days and I'm doing more, [...] days a week usually 1/2 tab only. Denies falls. Medical: sees specialist at [facility] for the vestibular neuritis in April. Depression screening PHQ-9 Little inte rest or pleasure in doing things: Several days Feeling down, depressed, or hopeless: Se veral days Trouble falling or staying asleep, or sl eeping too much: Not at all Feeling tired or having little energy: S everal days Poor appetite or overeating: Several day s Feeling bad about yourself o r that [...] some way: Not at all Total Score: 4 Interpretation: Minimal Depression Intervention Depression Screening Findings: P chai Follow-Up for Depression: Management of mental health treatment Suicide Risk Assessment Performed: 03/09 Additional Evaluation for De pression: Psychiatric interview and evaluation Name of the standardized too l used for adult depression screening:: Patient Health Questionnaire (PHQ-9) Depression Screening DAMON-7 (2018 Edition) Feelin g nervous, anxious, or on edge: Several days Not being able to stop or control worryi ng: Several days Worrying too much about different things : Several days Trouble relaxing: Not at all Being so restless that it is hard to sit still: Not at all Becoming easily annoyed or irritable: No t at all Total DAMON-7 Score: 3 If you checked any problems, how difficult have they made it for you to do your work, take care of things at home, or get along with other people?: Somewhat difficult Interpretation of Total: (0 to 4) No Anx iety Examination Category Sub-Category Detail Notes Category Not es Psychiatry Appearance: Constitutional: Appearance alert, well-groomed, slender, clean, appears well rested. No acute physical distress. Behavior: eye contact good, cooperative, pleasant Attitude: cooperative Psychomotor activity: within normal rang e Abnormal body movements: none Attention: good Degree of awareness of surroundings: wit hin normal limits Orientation: awake, alert and gino ented x 3 Affect / mood: anxious Speech / language: appropriate pitch/mo dulation, clear and coherent, normal rate, volume, and articulation (RVR), proper grammar used Insight: good Judgement: good Thought process: intact Thought content: appropriate Perceptual disorders: no perceptual diso rder noted Suicidal ideation: none Intellectual functioning: no impairment noted Memory status: no impairment noted; SLUMS Delusions: no Hallucinations: no Dementia Safety concern scree vivek for dangerousness to self and environment risks provided:: Yes What action was taken to mitigate the risk?: Education provided Topics discussed for environmental risks:: Home safety risks that could arise from cooking or smoking, Access to firearms or other weapons, Access to potentially dangerous chemicals and other materials Topics discussed for dangerousness to self:: Medication misuse, Financial mismanagement Safety concern mitigation recommendation provided:: Not required Screening Result:: Negative Caregiver education and support provided : Yes Functional Assessment Sylvester Index of ADL Score:: 6 1 point for independence, 0 for help 1 point for independence, 0 for help Physical Functioning Personal hygiene: i ncluding combing hair, brushing teeth, shaving, applying makeup, washing/drying face and hands (exclude baths and showers): Independent (1) Bathing: how client takes fu ll-body bath/shower or sponge bath (exclude washing of back and hair). Includes how each part of body is bathed: arms, upper and lower legs, chest, abdomen, perineal area. (code for most dependent episode in last 7 days): Independent (1) Dressing upper body: how cli ent dresses and undresses (street clothes, underwear) above the waist, includes prostheses, orthotics, fasteners, pullovers, etc.: Independent (1) Dressing lower body: how cli ent dresses and undresses (street clothes, underwear), from the waist down, includes prostheses, orthotics, belts, pants, skirts, shoes, and fasteners: Independent (1) Eating - Including taking in food by any method, including tube feedings: Independent (1) Toilet use: including using the toilet room or commode, bedpan, urinal, transferring on/off toilet, cleaning self after toilet use or incontinent episode, changing pad, managing any special devices required (ostomy or catheter), and adjusting clothes.: Independent (1) Transfer: including moving t o and between surfaces--to/from bed, chair, wheelchair, standing position (excludes to/from bath/toilet): Independent (1) Transportation: No difficulty Continence:: Independent (1)
--- OUTSIDE RECORDS SUMMARY | 2024-07-15 13:54 | XMS_ITS | Clinical Summary ---
Author Organization [facility] [address] [employer] Address [address] [place] [address] Care Team Providers Care Project Development Director Name Role Phone Yamile Hanks NP Primary Care Provider Allergies No known active allergies Medications amLODIPine-danuta zepriL (LOTREL 5-10) 5-10 mg per capsule Take 1 capsule by mouth daily 1 Active cyanocobalamin (Vitamin B-12) 1,000 mcg/mL injection INJECT 1 ML ONCE EVERY MONTH 1 Active Euthyrox 100 mcg tablet Take 1 tablet (100 mcg total) by mouth daily 1 Active pravastatin (PRAVACHOL) 40 mg tablet 1 Active calcium carbonate (OS-KEAGAN) 1,250 mg (500 mg elemental) tablet Take 1 tablet (1,250 mg total) by mouth daily Active omega-3 fatty acids-fish oil 300-1,000 mg capsule Take 2 capsules (2 g total) by mouth daily Active multivitamin tabletIndicatio ns:Vitamin Deficiency Prevention Take 1 tablet by mouth Active meclizine (ANTIVERT) 25 mg tablet Take 1 tablet (32 mg total) by mouth 3 (three) times a day as needed for dizziness 30 tablet 4 Active Additional Information Patient not taking.Reported on 03/25/2024 LORazepam (ATIVAN) 1 mg tablet Take 1 tablet (1 mg total) by mouth 4 Active ondansetron (ZOFRAN) 4 mg tablet Take 1 tablet (4 mg total) by mouth every 8 (eight) hours as needed for nausea or vomiting Active sertraline (ZOLOFT) 100 mg tablet Take 1 tablet (100 mg total) by mouth daily Active omeprazole (PriLOSEC) 20 mg capsule Take 1 capsule (20 mg total) by mouth daily Active melatonin 5 mg tablet Active Active Problems Problem Noted Date Diagnosed Date Bilateral carotid artery stenosis 03/26/2024 Assessment & Plan (03/26/2024 12:16 PM CDT): Bilateral moderate internal carotid artery stenosis. Patient remains asymptomatic. Continue statin therapy recommend baby aspirin. Dizziness and giddiness 09/18/2023 Moderate malnutrition 09/13/2023 Dizziness 09/12/2023 Stenosis of left internal carotid artery 024 HTN (hypertension) 09/11/2023 Hypothyroid 09/11/2023 Hypercholesterolemia 09/11/2023 History of carotid endarterectomy 09/11/2023 Anxiety 09/11/2023 Bilateral impacted cerumen 11/10/2019 Sensorineural hearing loss (SNHL) of both ears 0 11/10/2019 Encounters Date Type Department Care Team Description 04/28/2024 11:40 AM EXTRUSION PRESS SUPERVISOR Office Visit [facility] ([facility]) - [facility] ENT [address] [place] [address] [place] [address] Melissa Becerril MD Sensorineural hearing loss (SNHL) of both ears (Primary Dx); Dizziness and giddiness 04/28/2024 11:00 AM EXTRUSION PRESS SUPERVISOR Procedure visit [facility] Otolaryngology [address] [place] [address] [address] [place] [address] [place] [address] Sensorineural hearing loss, bilateral (Primary Dx); Light headed 04/28/2024 9:00 AM EXTRUSION PRESS SUPERVISOR Procedure visit [facility] Otolaryngology [address] [place] [address] [address]th [place] [address] [place] [address] Pennie Marino Au.D. Dizziness and giddiness from Last 3 Months Surgical History Surgery Date Site/Laterality Comments CAROTID ENARTERECTOMYY 06/03/2002 - 06/02/2003 Right Medical History Medical History Date Comments Ear problems Hypertension HLD (hyperlipidemia) Pernicious anemia Thyroid disease Orthostatic hypotension Family History Medical History Relation Name Comments Brain Aneurysm Father Stroke Mother COPD Sister Heart failure Sister Obesity Sister Relation Name Status Comments Father Mother Sister Social History Tobacco Use Types Packs/Day Years Used Date Smoking Tobacco: Never Smokeless Tobacco: Never Tobacco Cessation:Counseling Given: Not Answered Alcohol Use Standard Drinks/Week Comments Not Currently 0 (1 standard drink = 0.6 oz pur e alcohol) [facility] Utilities Answer Date Recorded In the past 12 months has th e [employer], gas, oil, or water [employer] threatened to shut off services in your home? No 09/12/2023 Social Connection and Isolation Panel [NHANES] A nswer Date Recorded In a typical week, how many times do you talk on the phone with family, friends, or neighbors? Patient unable to answer 09/12/2023 How often do you get togethe r with friends or relatives? Patient unable to answer 09/12/2023 How often do you attend chur ch or jewish services? Never 09/12/2023 Do you belong to any clubs o r organizations such as congregational groups, unions, fraternal or athletic groups, or school groups? No 09/12/2023 How often do you attend meet ings of the clubs or organizations you belong to? Never 09/12/2023 Are you , , di vorced, , never , or living with a partner? 09/12/2023 AUDIT-C Answer Date Recorded Q1: How often do you have a drink containing alcohol? Never 09/11/2023 Q2: How many drinks containi ng alcohol do you have on a typical day when you are drinking? Patient does not drink Q3: How often do you have si x or more drinks on one occasion? Never 09/11/2023 Overall Financial Resource Strain (CARDIA) Answe r Date Recorded How hard is it for you to pa y for the very basics like food, housing, medical care, and heating? Not very hard 09/12/2023 Hunger Vital Sign Answer Date Recorded Within the past 12 months, y ou worried that your food would run out before you got the money to buy more. Never true 09/12/19 24 Within the past 12 months, t he food you bought just didn't last and you didn't have money to get more. Never true 09/12/2023 PRAPARE - Transportation Answer Date Re corded In the past 12 months, has l ack of transportation kept you from medical appointments or from getting medications? No 09/01 In the past 12 months, has l ack of transportation kept you from meetings, work, or from getting things needed for daily living? No 09/12/2023 Housing Stability Vital Sign Answer Caden e Recorded In the last 12 months, was t here a time when you were not able to pay the mortgage or rent on time? No 09/12/2023 In the last 12 months, how many places have you lived? 1 09/12/2023 In the last 12 months, was t here a time when you did not have a steady place to sleep or slept in a longterm (including now)? No 09/12/2023 Personal Safety Answer Date Recorded Have you ever been in or are you currently in a harmful physical or emotional relationship or is someone making you feel afraid or unsafe? Denies 09/11/2023 Comments Unknown Sex and Gender Information Value Date Recorded Sex Assigned at Not on file Legal Sex Female 4:06 PM EXTRUSION PRESS SUPERVISOR Gender Identity Not on file Sexual Orientation Not on file Obstetrics History Last Filed Vital Signs Vital Sign Reading Time Taken Comments Blood Pressure 190/74 03/25/2024 1:49 PM CDT Pulse 90 03/25/2024 1:49 PM CDT Temperature 36.4 C (97.6 F) 09/17/2023 9:39 AM CDT Respiratory Rate 18 10/04/2023 10:46 AM CDT Oxygen Saturation 99% 09/13/2023 7:41 AM CDT Inhaled Oxygen Concentration - - Weight 48.1 kg (106 lb) 03/25/2024 1:49 PM CDT Height 160 cm (5' 3 ) 03/25/2024 1:49 PM CDT Body Mass Index 18.78 03/25/2024 1:49 PM CDT Plan of Treatment Health Maintenance Due Date Last Done Comments Depression Screening 1935 DTaP/Tdap/Td Vaccine (1 - Tdap) 1948 Hepatitis B Screening 1955 Zoster Vaccine (1 of 2) 1987 Pneumococcal vaccine 65+ (1 of 1 - PCV) 2002 Well Visit 65+ 2002 Influenza Vaccine (#1) 2024 9, 03/25/2018, 03/20/2017 Fall Risk Assessment 09/12/2024 09/13/2023 Procedures Procedure Name Priority Date/Time Associated Diagnosis Comments AUDBASE RESULTS 04/28/2024 9:32 AM EXTRUSION PRESS SUPERVISOR from Last 3 Months Results * AudBase Results (04/28/2024 9:32 AM EXTRUSION PRESS SUPERVISOR) Provider Scanning AUDIOLOGY SERVICES ORDERABLES Final Result from Last 3 Months Insurance MEDICARE [facility] JAUN Donaldson [id number] [facility] Advance Directives For more information, please contact: [phone] * Full Code (Latest Code Status on File) Date Activated Date Inactivated Comments 09/11/2023 8:06 PM 09/13/2023 5:12 PM Care Teams Project Development Director Relationship Specialty Start Date End Date Yamile Hanks NP [address] [place] [id number] PCP - General Nurse Practitioner 03/25/24
--- OUTSIDE RECORDS SUMMARY | 2024-07-15 13:54 | XMS_ITS | Referral Summary ---
Author Organization [facility] [address] [employer] [place] [address] Care Team Providers Care Furnace Operator And Tender Name Role Phone Yamile Hanks NP Primary Care Provider [phone] Encounters Date Type Department Care Team Description 04/28/2024 11:00 AM DOUPER Procedure visit [facility] Otolaryngology [address] [place] [address] [address]th [place] [address] [place] [address] Sensorineural hearing loss, bilateral (Primary Dx); Light headed 04/28/2024 9:00 AM DOUPER Procedure visit [facility] Otolaryngology [address] [place] [address] [place] [address] [place] [address] Pennie Marino Au.D. Dizziness and giddiness 04/28/2024 11:40 AM DOUPER Office Visit [facility] - [facility] ENT [address] [place], [place] [address] [place] [address] [place] [address] Melissa Becerril MD Sensorineural hearing loss (SNHL) of both ears (Primary Dx); Dizziness and giddiness from Last 3 Months Allergies No known active allergies Medications amLODIPine-danuta [...] loss (SNHL) of both ears 0 11/10/2019 Social History Tobacco Use Types Packs/Day Years Used Date Smoking Tobacco: Never Smokeless Tobacco: Never Tobacco Cessation:Counseling Given: Not Answered Alcohol Use Standard Drinks/Week Comments Not Currently 0 (1 standard drink = 0.6 oz pur e alcohol) [facility] Utilities Answer Date Recorded In the past 12 months has th e electric, gas, oil, or water company threatened to shut off services in your [...] often do you attend chur ch or druze services? Never 09/12/2023 Do you belong to any clubs o r organizations such as congregation groups, unions, fraternal or athletic groups, or [...] place to sleep or slept in a intermediate (including now)? No 09/12/2023 Personal Safety Answer Date Recorded Have you ever been in or are you currently in a harmful physical or emotional relationship or is someone making you feel afraid or unsafe? Denies 09/11/2023 Comments Unknown Sex and Gender Information Value Date Recorded Sex Assigned at Not on file Legal Sex Female 4:06 PM DOUPER Gender Identity Not on file Sexual Orientation [...] 03/25/2024 1:49 PM CDT Plan of Treatment Not on file Procedures Procedure Name Priority Date/Time Associated Diagnosis Comments AUDBASE RESULTS 04/28/2024 9:32 AM DOUPER from Last 3 Months Results * AudBase Results (04/28/2024 9:32 AM DOUPER) us Provider Scanning AUDIOLOGY SERVICES ORDERABLES Final Result from Last 3 Months Insurance MEDICARE [employer] [id number] [place] [address] OF [employer] MED[employer] Advance Directives For more information, please contact: [phone] * Full Code (Latest Code Status on File) Date Activated Date Inactivated Comments 09/11/2023 8:06 PM 09/13/2023 5:12 PM Care Teams Furnace Operator And Tender Relationship Specialty Start Date End Date Yamile Hanks NP [address] [place] [id number] PCP - General Nurse Practitioner 03/25/24
--- OUTSIDE RECORDS SUMMARY | 2024-07-15 13:54 | XMS_ITS ---
Author Organization [facility] [employer] [facility] Address [address] [place] [address] Care Team Providers Care Fire Chief'S Aide Name Role Phone Santo JAMES, Khari Primary Care Provider UnavailYeni Sanders Unavailable [phone] Allergies Allergen (clinical drug ingredient) Drug/Non Drug Allergy documented on EMR Reaction Allergy Type Onset Date Status Inapsine Unknown Drug Allergy 11/18/2023 Active REASON FOR VISIT Follow up anxiety, context multiple health problems Medications Medication SIG (Take, Route, Frequency, Duration) Notes Start Date End Date Status Pravastatin Sodium 40 MG Oral 10/16/2023 Active Ofloxacin 0.30% Ophthalmic 10/16/2023 Ac tive Doxycycline Monohydrate 100 MG Oral for 30 Days Active Aspirin 81 81 MG 1 tablet Orally Once a day for 30 day(s) 05/19/2024 06/18/2024 Active Levothyroxine Sodium 100 MCG Oral 10/16/2023 Active amLODIPine Besy-Benazepril HCl 5-10 MG Oral 10/16/2023 Active Cyanocobalamin 1000 MCG/ML Injection 10/16/2023 Active Omeprazole Magnesium 20 MG 1 tablet 30 minutes before morning meal Orally Once a day Active Sertraline HCl 100 MG 1 tablet every morning Oral Once a day for 90 days Active PriLOSEC 2.5 MG as directed Orally Not-Taking Social History Sex Assigned At : Social [...] Do you have a medical power of assistant attorney general?: No Problems Problem Type SNOMED Code ICD Code Onset Dates Problem Status W/U Status Risk Notes Problem Benign essential hypertension (0931131) Benign essential hypertension (I10) Active confirmed Problem Hypercholesterolemia (32153440) Hypercholesterolemia (E78.00) Active confirmed Vital Signs Blood pressure systolic 160 mm Hg 05/19/20 24 Blood pressure diastolic 66 mm Hg 024 Heart Rate 79 /min 05/19/2024 Height 63.00 in 05/19/2024 Weight 114 lbs 05/19/2024 BMI 20.19 kg/m2 05/19/2024 Height-cm 160.02 cm 05/19/2024 Weight-kg 51.71 kg 05/19/2024 Encounters Encounter Location Date Provider Diagnosis [facility] [employer] [facility] [address] [facility] [address] [place] [address] 05/19/2024 Yeni Fall 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 - Patient reports gaining 8 pounds and having a good appetite. - Dizziness symptoms have resolved. - Occasional high blood pressure readings, monitoring daily. - Sleeping well without melatonin. - Asks if she should continue sertraline Plan: - Continue Zoloft 100 mg daily - Dc Ativan - Encourage maintaining healthy diet and exercise routine - Encourage to continue blood pressure monitoring, don't overdue it and get more anxiety, follow up with PCP Follow-up in 3 months, sooner if concerns arise. Assess symptoms and consider decreasing Zoloft dosage if appropriate. 05/19/2024 Generalized anxiety disorder (ICD-10 - F41.1) Assessment and Plan: - Patient reports not taking Ativan in the last month and feeling better overall, Zoloft seems to be helping with anxiety symptoms. - Patient reports gaining 8 pounds and having a good appetite. - Dizziness symptoms have resolved. - Occasional high blood pressure readings, monitoring daily. - Sleeping well without melatonin. - Asks if she should continue sertraline Plan: - Continue Zoloft 100 mg daily - Dc Ativan - Encourage maintaining healthy diet and exercise routine - Encourage to continue blood pressure monitoring, don't overdue it and get more anxiety, follow up with PCP Follow-up in 3 months, sooner if concerns arise. Assess symptoms and consider decreasing Zoloft dosage if appropriate. 05/19/2024 Insomnia due to other mental disorder (ICD-10 - F51.05) Assessment and Plan: - Patient reports not taking Ativan in the last month and feeling better overall, Zoloft seems to be helping with anxiety symptoms. - Patient reports gaining 8 pounds and having a good appetite. - Dizziness symptoms have resolved. - Occasional high blood pressure readings, monitoring daily. - Sleeping well without melatonin. - Asks if she should continue sertraline Plan: - Continue Zoloft 100 mg daily - Dc Ativan - Encourage maintaining healthy diet and exercise routine - Encourage to continue blood pressure monitoring, don't overdue it and get more anxiety, follow up with PCP Follow-up in 3 months, sooner if concerns arise. Assess symptoms and consider decreasing Zoloft dosage if appropriate. 05/19/2024 Hypertension (ICD-10 - I10) Assessment and Plan: - Patient reports not taking Ativan in the last month and feeling better overall, Zoloft seems to be helping with anxiety symptoms. - Patient reports gaining 8 pounds and having a good appetite. - Dizziness symptoms have resolved. - Occasional high blood pressure readings, monitoring daily. - Sleeping well without melatonin. - Asks if she should continue sertraline Plan: - Continue Zoloft 100 mg daily - Dc Ativan - Encourage maintaining healthy diet and exercise routine - Encourage to continue blood pressure monitoring, don't overdue it and get more anxiety, follow up with PCP Follow-up in 3 months, sooner if concerns arise. Assess symptoms and consider decreasing Zoloft dosage if appropriate. Plan Of Treatment Medication Medication Name Sig Start Date Stop Date Notes Sertraline HCl 100 MG 1 tablet every mor vivek Oral Once a day for 90 days LORazepam 1 MG TAKE 1/2 TO 1 (ONE-H [place] TO ONE) TABLET BY MOUTH ONCE DAILY NEEDED FOR SEVERE ANXIETY Oral Next Appt Details Follow Up: 3 Months, Reason: Provider Name:Yeni mar, 08/17/2024 03:00:00 PM, [address] [facility] [address] 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 Reports today mood is overall good. Appetite better, acid reflux better, gained some weight again, happy with that. The vestibular neuritis has resolved, no more dizziness. Reports questionable if was misdiagnosed, or just resolved on it's own. O verall feeling better about things. Some worrying, some down moods, but feels it's normal like everyone else would be feeling, appropriate for situations. No depression, no panic attacks. Denies SI. Hasn't needed ativan for quite some time, doesn't remember last time she took a dose. Feeling much better. Sleep has been good, not needed melatonin. Endorses overall feeling so much better. no falls, no concerns with memory. H istory of Presenting Problem: 04/08/24: endorsed ongoing anxiety related to multiple health issues, vestibular neuritis still causing dizziness and lightheadedness. Had CT scan in December for acid reflux, revealed a small area of pneumonia, SC showed a n atypical mycobacterium, now having ongoing monitoring via CT scans every four months. Worried about that now too. Feels a little ebtter with sertraline, occasional lorazepam. She is scheduled to see a specialist for her vestibular neuritis later this month and continues to monitor her health closely. Has lost weight from her GERD complications, down to 102 lbs per patient. Reports sleep good. Denies depressed mood. Teary-eyed during appointment.She expresses frustration with the accumulation of multiple health issues after years of good health and is particularly concerned now with m ycobacterium infection and the potential development of worsening complications. She notes her BP has been lower lately, s ometimes omits her BP medication. E xpresses constant worry about health and recovery, denies experiencing panic attacks. - c ont. sertraline 100 mg as prescribed., C ont. lorazepam 0.5 mg, 0.5 - 1 tab as needed once a day. minimize use - c ont OTC melatonin 5mg as needed Note: the following summaries from prior encounters with a different provider, see prior notes for more details 03/09/24: seems to be better after increasing sertraline, [...] Denies falls. Medical: sees s pecialist at [place] [facility] or the vestibular neuritis in April. - cont sertraline 100mg daily, recommended counseling 02/05/24: reported increased anxiety. Endorsed medical problems of ongoing dry eyes, vestibular neuritis, GERD complications. No appetite, endorsed nauseam dizziness. Endorsed panic attacks. - increased sertraline this visit to 100 mg daily. S topped Valium, was taking old lorazepam, refilled. encouraged sleep hygiene, taking melatonin. r ecommended counseling 12/23/23: endorsed ongoing anxiety. Endorses stomach problems: nausea, bloating, verbalized issues with this prior to sertraline. started Prilosec. Sleeping okay. Taking Valiulm for another provider. - sertraline increased to 75 mg daily 11/14/2023: complains of neuritis, doing exercises for it. causes dizziness nausea, ER, given valium for dizziness. Endorses not taking the Vaium or Ativan. thinks sertraline is helping, hard to tell . denies depression, endorses anxiety from everything going on. Agreed to take over for low dose, and plan for short-term ideally while trying to get SSRI on board, but want to avoid long-term regular use. - s ertraline increased to 50 mg. PCP does not want to prescribed her ativan anymore. intake 10/16/23: CC: jonn mcrae anxiety, I'll tell you my story. I'm 88, never had any trouble before, very healthy, I'm a nurse for 45 yrs, I like to prevent things. 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 Had lightheadedness. Went to ER, they thought maybe clogged carotid, did work up, sent me to [facility], but CT said severe and doppler said [...] switched to the lorazepam. initial substance abuse hx:Caffeine: max 2 c coffee, C igarette/vape: former, E SHELLY: zero, denied past problematic use, C annabis: denied, O ther drug use or tx hx: denied Anxiety [...] mg daily. 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 increased sertraline, denies side effects. D epression Screening: DAMON-7 (2018 Edition) F eeling nervous, anxious, or on edge?Several days, N ot being able to stop or control worrying N ot at all, W orrying too much about different things [...] home, or get along with other people? S omewhat difficult, I nterpretation of Total ( 0 [...] everal days, P oor appetite or overeating N ot [...] N ot at all, T otal Score 3 , I nterpretation M inimal Depression. I ntervention D epression Screening Findings?Negative, S uicide Risk Assessment Performed . * ROS: G eneral / Constitutional: Patient denies f atigue, fever, headache, lightheadedness.? C ardiovascular: Patient denies c hest pain, dizziness, palpitations. ? G astrointestinal: Patient denies n ausea, vomiting, change in bowel habits, stomach problems. N eurologic: Patient denies b alance difficulty, confusion, gait abnormality, seizures, tic, tingling / numbness, tremor. P sychiatric: Patient denies a uditory / visual hallucinations, delusions, suicidal thoughts, Dissociations, involuntary movements. Teofilo Bright [facility] for details.? P atient not eligible due to active diagnosis of hypertension: Chris [id number] Patient not eligible due to active diagnosis of hypertension: Chris [id number]. * Medical History: * Surgical History: * Hospitalization/Major Diagno stic Procedure: * Social History: M igrated Social History: [...] Do you have a medical power of assistant attorney general?: No. * Medications: T akingOmeprazole Magnesium 20 MG Tablet Delayed Release 1 tablet 30 minutes before morning meal Orally Once a day Cyanocobalamin 1000 MCG/ML Solution Injection amLODIPine Besy-Benazepril HCl 5-10 MG Capsule Oral Levothyroxine Sodium 100 MCG Tablet Oral Ofloxacin 0.30% Solution Ophthalmic Pravastatin Sodium 40 MG Tablet Oral Sertraline HCl 100 MG Tablet 1 tablet every morning Oral Once a day Aspirin 81 81 MG Tablet Delayed Release 1 tablet Orally Once a day , stop date 06/18/2024Doxycycline Monohydrate 100 MG Capsule Oral Taking Omeprazole Magnesium 20 MG Tablet Delayed Release 1 tablet 30 minutes before morning meal Orally Once a day Taking Cyanocobalamin 1000 MCG/ML Solution Injection Taking amLODIPine Besy-Benazepril HCl 5-10 MG Capsule Oral Taking Levothyroxine Sodium 100 MCG Tablet Oral Taking Ofloxacin 0.30% Solution Ophthalmic Taking Pravastatin Sodium 40 MG Tablet Oral Taking Sertraline HCl 100 MG Tablet 1 tablet every morning Oral Once a day Taking Aspirin 81 81 MG Tablet Delayed Release 1 tablet Orally Once a day , stop date 06/18/2024Taking Doxycycline Monohydrate 100 MG Capsule Oral Not-TakingPriLOSEC 2.5 MG Packet as directed Orally LORazepam 1 MG Tablet TAKE 1/2 TO 1 (ONE-HALF TO ONE) TABLET BY MOUTH ONCE DAILY NEEDED FOR SEVERE ANXIETY Oral Not-Taking PriLOSEC 2.5 MG Packet as directed Orally Not-Taking LORazepam 1 MG Tablet TAKE 1/2 TO 1 (ONE-HALF TO ONE) TABLET BY MOUTH ONCE DAILY NEEDED FOR SEVERE ANXIETY Oral DiscontinueddiazePAM 5 MG Tablet TAKE 1 TABLET BY MOUTH EVERY 8 HOURS NEEDED FOR DIZZINESS Oral , Notes to Pharmacist: [id number],UnavailableMedication List reviewed and reconciled with the patientDiscontinued diazePAM 5 MG Tablet TAKE 1 TABLET BY MOUTH EVERY 8 HOURS NEEDED FOR DIZZINESS Oral , Notes to Pharmacist: [id number],UnavailableMedication List reviewed and reconciled with the patient * Allergies: I napsine: Side Effects - Onset Date 11/18/2023no[Allergies Verified] Objective: * Vitals: B P:160/66mm Hg, HR:79/min, Wt:114lbs, Wt-k.71 kg, Ht: 63.00 in, Ht-cm: 160.02 cm, BMI:20.19Index, Body Surface Area: 1.51. * Examination: P sychiatry: Appearance: a lert, pleasant, groomed, w ell-nourished and in no acute distress. Abnormal body movements: n one. Affect / mood: a ppropriate, full range. Attention: g ood, normal in conversation. Attitude: c ooperative, open-minded with collaborative approach. Homicidal ideation: n one. Suicidal ideation: n one. Memory status: n o impairment noted. Degree of awareness of surroundings: w ithin normal limits.? Delusions: n o. Hallucinations: n o. Insight: g ood. Intellectual functioning: n o impairment noted. Judgement: g ood. Orientation: a wake, alert and oriented x 3. Psychomotor activity: w ithin normal range. Speech / language: a ppropriate pitch/modulation, clear and coherent, normal rate, volume, and articulation (RVR), proper grammar used. Thought content: a ppropriate. Thought process: i ntact. Assessment: * Assessment: 1. S omatic symptom disorder - F45.1 (Primary) 2 . G eneralized anxiety disorder - F41.1 3 . I nsomnia due to other mental disorder - F51.05 ?4. H ypertension - I10 Assessment and Plan: - Patient reports not taking Ativan in the last month and feeling better overall, Z oloft seems to be helping with anxiety symptoms. - Patient reports gaining 8 pounds and having a good appetite. - Dizziness symptoms have resolved. - Occasional high blood pressure readings, monitoring daily. - Sleeping well without melatonin. - Asks if she should continue sertraline Plan: - Continue Zoloft 100 mg daily - Dc Ativan - Encourage maintaining healthy diet and exercise routine - Encourage to continue blood pressure monitoring, don't overdue it and get more anxiety, follow up with PCP Follow-up in 3 months, sooner if concerns arise. Assess symptoms and consider decreasing Zoloft dosage if appropriate. Plan: * Treatment: * Procedure Codes: 9 6127 BEHAV ASSMT W/SCORE & DOCD/STAND [id number] Pt not nhung d/t act dig [id number] VISIT COMPLEXITY INHERENT TO ONGOING CARE RELATED TO A PATIENT'S SINGLE, SERIOUS CONDITION OR A COMPLEX CONDITION * Preventive Medicine: * Follow Up: 3 Months * Billing Information: * Visit Code: [id number] OFFICE OUTPATIENT VISIT 25 MINUTES DETAILED HISTORY AND EXAM/MODERATE MEDICAL DECISION MAKING. * Procedure Codes: 37803 BEHAV ASSMT W/SCORE & DOCD/STAND INSTRUMENT. G9744 Pt not nhung d/t act dig htn. G2211 VISIT COMPLEXITY INHERENT TO ONGOING CARE RELATED TO A PATIENT'S SINGLE, SERIOUS CONDITION OR A COMPLEX CONDITION. * GER OF APPLICATION DEVELOPMENT Electronically co-signed by Mayco Guillen MD on 05/21/2024 at 05:52 PM MANAGER OF APPLICATION DEVELOPMENT Sign off status: Completed Addendum: * true * Provider: Haleigh Fall Date: 1 07/20/2023 Generated for Kim peidra/Dayanara/Martha on: 0 07/15/2024 01:54 PM MANAGER OF APPLICATION DEVELOPMENT History and Physical Notes * HPI (History of Present Illness) Category Sub-Category Detail Notes Category Not es History of Presenting Problem 04/08/24: endorsed ongoing anxiety related to multiple health issues, vestibular neuritis still causing dizziness and lightheadedness. Had CT scan in December for acid reflux, revealed a small area of pneumonia, SC showed an atypical mycobacterium, now having ongoing monitoring via CT scans every four months. Worried about that now too. Feels a little ebtter with sertraline, occasional lorazepam. She is scheduled to see a specialist for her vestibular neuritis later this month and continues to monitor her health closely. Has lost weight from her GERD complications, down to 102 lbs per patient. Reports sleep good. Denies depressed mood. Teary-eyed during appointment.She expresses frustration with the accumulation of multiple health issues after years of good health and is particularly concerned now with mycobacterium infection and the potential development of worsening complications. She notes her BP has been lower lately, sometimes omits her BP medication. Expresses constant worry about health and recovery, denies experiencing panic attacks. - cont. sertraline 100 mg as prescribed., Cont. lorazepam 0.5 mg, 0.5 - 1 tab as needed once a day. minimize use - cont OTC melatonin 5mg as needed Note: the following summaries from prior encounters with a different provider, see prior notes for more details 03/09/24: seems to be better after increasing sertraline, [...] use. Denies falls. Medical: sees specialist at [place] for the vestibular neuritis in April. - cont sertraline 100mg daily, recommended counseling 02/05/24: reported increased anxiety. Endorsed medical problems of ongoing dry eyes, vestibular neuritis, GERD complications. No appetite, endorsed nauseam dizziness. Endorsed panic attacks. - increased sertraline this visit to 100 mg daily. Stopped Valium, was taking old lorazepam, refilled. encouraged sleep hygiene, taking melatonin. recommended counseling 12/23/23: endorsed ongoing anxiety. Endorses stomach problems: nausea, bloating, verbalized issues with this prior to sertraline. started Prilosec. Sleeping okay. Taking Valiulm for another provider. - sertraline increased to 75 mg daily 11/14/2023: complains of neuritis, doing exercises for it. causes dizziness nausea, ER, given valium for dizziness. Endorses not taking the Vaium or Ativan. thinks sertraline is helping, hard to tell . denies depression, endorses anxiety from everything going on. Agreed to take over for low dose, and plan for short-term ideally while trying to get SSRI on board, but want to avoid long-term regular use. - sertraline increased to 50 mg. PCP does not want to prescribed her ativan anymore. intake 10/16/23: CC: well anxiety, I'll tell you my story. I'm 88, never had any trouble before, very healthy, I'm a nurse for 45 yrs, I like to prevent things. 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 Had lightheadedness. Went to ER, they thought maybe clogged carotid, did work up, sent me to [facility], but CT said severe and doppler said [...] switched to the lorazepam. initial substance abuse hx:Caffeine: max 2 c coffee, Cigarette/vape: former, ETOH: zero, denied past problematic use, Cannabis: denied, Other drug use or tx hx: denied [...] mg daily. 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 increased sertraline, denies side effects Depression screening PHQ-9 Little interest or pleasure in doing things: Several days Feeling down, depressed, or hopeless: Se veral days Trouble falling or staying asleep, or sl eeping too much: Not at all Feeling tired or having little energy: S everal days Poor appetite or overeating: Not at all [...] some way: Not at all Total Score: 3 Interpretation: Minimal Depression Intervention Depression Screening Findings: N egative Suicide Risk Assessment Performed: ____ Depression Screening DAMON-7 (2018 Edition) Feelin g nervous, anxious, or on edge: Several days Not being able to stop or control worryi ng: Not at all Worrying too much about different things : [...] Detail Notes Category Not es Psychiatry Appearance: alert, pleasant, groomed, well-nourished and in no acute distress Attitude: cooperative, open-mi nded with collaborative approach Psychomotor activity: within normal rang e Abnormal body movements: none Attention: good, normal in conv ersation Degree of awareness of surroundings: wit hin normal limits Orientation: awake, alert and gino ented x 3 Affect / mood: appropriate, full ra nge Speech / language: appropriate pitch/mo dulation, clear and coherent, normal rate, volume, and articulation (RVR), proper grammar used Insight: good Judgement: good Thought process: intact Thought content: appropriate Suicidal ideation: none Homicidal ideation: none Intellectual functioning: no impairment noted Memory status: no impairment noted Delusions: no Hallucinations: no
--- OUTSIDE RECORDS SUMMARY | 2024-07-15 13:54 | XMS_ITS | Patient Health Record ---
Author Organization [facility] Address [address] [place] [address] Care Team Providers Care Bioprocessing Manufacturing Technician Name Role Phone Santo JAMES, Dr Lucia Primary Care Provider Dr. Sandeep Flores Unavailable [phone] ZZ-Migration, Provider Unavailable Unavailab le Allergies No Known Allergies Reason For Referral No Information Medications Medication SIG (Take, Route, Frequency, Duration) Notes Start Date End Date Status LEVOTHYROXINE 100 mcg (0.1 mg) 1 tab(s) orally once a day Active VITAMIN B12 1000 mcg 1 tab(s) orally once a month Active LOTREL 5 mg-10 mg 1 cap(s) orally once a day Active ATIVAN 1 mg 1 tab(s) orally 3 times a day Active CALCIUM 500+D 500 mg-10 mcg 1 tab(s) chewed 2 times a day Active FISH OIL 500 mg 1 cap(s) orally once a day Active PRAVACHOL 40 MG 1 TAB(S) ORALLY ONCE A DAY *Please review for potential replacement for e-prescription and drug interaction check* Active Ativan 1 MG 1 tab(s) orally 3 times a day Active Fish Oil 500 MG 1 cap(s) orally once a day Active Calcium 500+D 500 MG-10 MCG 1 TAB(S) CHEWED 2 TIMES A DAY *Please review and pick correct strength-formulatio n from Medispan options. If intended option is not shown, discontinue and re-order from Quick Search* Active B-12 1000 MCG 1 tab(s) orally once a month Active Levothyroxine Sodium 100 MCG 1 tab(s) orally once a day Active Lotrel 5-10 MG 1 cap(s) orally once a day Active Problems Problem Type SNOMED Code ICD Code Onset Dates Problem Status W/U Status Risk Notes Problem Anxiety disorder (303416327) Anxiety disorder, unspecified (F41.9) Active confirmed Problem Left carotid artery occlusion (694145060524280 ) Occlusion and stenosis of left carotid artery (I65.22) Active confirmed Problem Orthostatic hypotension (42521230) Orthostatic hypotension (I95.1) Active confirmed Vital Signs Respiratory Rate 18 /min 09/25/2023 Oximetry 97 % 09/25/2023 Blood pressure diastolic 81 (lying) mm Hg 09/25/2023 Height 63 in 09/25/2023 Blood pressure systolic 162 mm Hg 09/25/2023 Weight 112.2 lbs 09/25/2023 BMI 19.87 kg/m2 09/25/2023 Encounters Encounter Location Date Provider Diagnosis [address] [address] 11/16/2023 Provider ZZ-Migration [facility] [address] [facility] [address] [place] [address] 09/25/2023 Sandeep Ayleen Dizziness and giddiness R42 ; Orthostatic hypotension I95.1 ; Anxiety disorder, unspecified F41.9 and Occlusion and stenosis of left carotid artery I65.22 Assessments Encounter Date Diagnosis (ICD Code) Assessment Notes Treatment Notes Treatment Clinical Notes Section Notes 09/25/2023 Orthostatic hypotension (ICD-10 - I95.1) Not [...] symptom. She needs a VNG study. 09/25/2023 Dizziness and giddiness (ICD-10 - R42) [...] needs a VNG study. Plan Of Treatment No Information Insurance Providers Payer Name Payer Address Payer Phone Subscriber Number Group Number Insured Name Patient Relationship to Insured Coverage Start Date Coverage End Date [employer] (Medicare) Attention Claims [address] [place] [address] [id number] Sonja Kenney Self - patient is the insured [address] [place] [address] [id number] Sonja Kenney Self - patient is the insured 3 Medical (General) History Medical History History ICD Code Hypothyroidism HLD HTN H/o pernicious anemia/B12 deficiency Orthostatic hypotension Surgical History Surgery Date(Month/Year) R CEA
== END 2024-07-15 13:51 | disposition home or self-care (01) ==
PROVIDERS: PCP Nurse Practitioner Family; Visit Provider Nurse Practitioner Family
DX: A31.0 Pulmonary mycobacterial infection (principal)
CPT/HCPCS: 87015; 87070; 87116; 87205; 87206

== ENCOUNTER 2024-07-20 09:36 | Outpatient (CLI) | payer MEDICARE, OTHER, SELFPAY ==
--- NOTE | ~2024-07-20 | CT_ITS ---
CT Scan of the Chest without Contrast: Clinical Indication: Pulmonary mycobacterial infection Technique: Contiguous sections were acquired throughout the chest without intravenous contrast. Dose reduction technique was used on this scan by utilizing automated exposure control and iterative recon struction technique. The dose-length product (DLP) was 62.71 mGy-cm. COMPARISON: 03/31/2024 Findings: There is no evidence of any significant mediastinal, hilar or axillary lymphadenopathy. Coronary cirilo ry calcifications are present. There is no evidence of pleural or pericardial effusion. Stable biapical scarring. Stable medially probable paravertebral nodule (axial image 26). Stable calc ified right lower lobe granuloma. Focal tree-in-bud opacities in the right middle lobe are present. T here are a few large irregular pulmonary nodules in the anterolateral right lower lobe. There is stab le linear scarring in the anterolateral left lower lobe. Images through the upper abdomen reveal no abnormalities. There is new L1 compression fracture. Impression: Tree-in-bud opacities in the middle lobe and slightly larger irregular nodules in the anterolateral r ight lower lobe. Findings are compatible with small airways infectious process. Compression fracture, new from prior exam, therefore likely acute to subacute. Reviewed, dictated and finalized at location . LOCATOR Impression: Tree-in-bud opacities in the middle lobe and slightly larger irregular nodules in the anterolateral right lower lobe. Findings are compatible with small airwa ys infectious process. Compression fracture, new from prior exam, therefore likely acute to subacute.
--- OUTSIDE RECORDS SUMMARY | 2024-07-20 12:22 | XMS_ITS | Clinical Summary ---
Author Organization [facility] [employer] Address [address] [place] [address] Care Team Providers Care Steam Brush Operator Name Role Phone Yamile Hanks NP Primary [...] Department Care Team Description 04/28/2024 11:40 AM DESIGNER AND PATTERNMAKER Office Visit [facility] ENT [address] [facility] 11th [place] [address] [place] [address] Melissa Becerril MD Sensorineural hearing loss (SNHL) of both ears (Primary Dx); Dizziness and giddiness 04/28/2024 11:00 AM DESIGNER AND PATTERNMAKER Procedure visit [facility] Otolaryngology [address] [place] [address] [address]th [place] [address] [place] [address] Sensorineural hearing loss, bilateral (Primary Dx); Light headed 04/28/2024 9:00 AM DESIGNER AND PATTERNMAKER Procedure visit [facility] Otolaryngology [address] [place] [address] [address] [place] [address] [place] [address] Pennie Marino Au.D. Dizziness and giddiness from [...] drink = 0.6 oz pur e alcohol) [facility] Utilities Answer Date Recorded In the past 12 months has th e [employer], gas, oil, or water [employer] threatened to shut off services in your [...] often do you attend chur ch or jew services? Never 09/12/2023 Do you belong to any clubs o r organizations such as jewish groups, unions, fraternal or athletic groups, or [...] place to sleep or slept in a fdc (including now)? No 09/12/2023 Personal Safety Answer Date Recorded Have you ever been in or are you currently in a harmful physical or emotional relationship or is someone making you feel afraid or unsafe? Denies 09/11/2023 Comments Unknown Sex and Gender Information Value Date Recorded Sex Assigned at Not on file Legal Sex Female 4:06 PM DESIGNER AND PATTERNMAKER Gender Identity Not on file Sexual Orientation [...] Diagnosis Comments AUDBASE RESULTS 04/28/2024 9:32 AM DESIGNER AND PATTERNMAKER from Last 3 Months Results * AudBase Results (04/28/2024 9:32 AM DESIGNER AND PATTERNMAKER) Provider Scanning AUDIOLOGY SERVICES ORDERABLES Final Result from Last 3 Months Insurance MEDICARE [facility] JUAN Donaldson [id number] [facility] Advance Directives For more information, please contact: [phone] * Full Code (Latest Code Status on File) Date Activated Date Inactivated Comments 09/11/2023 8:06 PM 09/13/2023 5:12 PM Care Teams Steam Brush Operator Relationship Specialty Start Date End Date Yamile Hanks NP [address] [place] [address] PCP - General Nurse Practitioner 03/25/24
--- OUTSIDE RECORDS SUMMARY | 2024-07-20 12:22 | XMS_ITS | Clinical Summary ---
Author Organization [facility] Address [address] [place] [address] Care Team Providers Care Table Keeper Name Role Phone Khari Blanchard MD Primary Care Provider [phone] Antonio Thorne MD Unavailable Allergies No known [...] Take 1 tablet by mouth daily. Active [place]-3 Fatty Acids (FISH OIL OMEGA-3 OR) Take [...] age to complete this topic Insurance MEDICARE [facility] Care Teams Table Keeper Relationship Specialty Start Date End Date Khari Blanchard MD [address] [place] [address] PCP - General FAMILY PRACTICE 09/10/23 [place] [address] [place] [address] OTOLARYNGOLOGY 11/07/23
--- OUTSIDE RECORDS SUMMARY | 2024-07-20 12:22 | XMS_ITS ---
Author Organization [facility] As [employer] Address [address] [place] [address] Care Team Providers Care Labor And Delivery Registered Nurse Name Role Phone Santo JAMES, Khari Primary Care Provider Unavailab Yeni Dhaliwal Unavailable [phone] Allergies Allergen (clinical drug ingredient) Drug/Non Drug [...] Do you have a medical power of state's attorney?: No Problems Problem Type SNOMED Code ICD Code Onset Dates Problem Status W/U Status Risk Notes Problem Elevated blood pressure reading without diagnosis of hypertension (570741539) Elevated blood-pressure reading, without diagnosis of hypertension (R03.0) Active confirmed Problem 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 Problem Hypertension (29734231) Hypertension (I10) Active confirmed Vital Signs Blood pressure systolic 186 mm Hg 04/08/20 24 Blood pressure diastolic 78 mm Hg 024 Heart Rate 93 /min 04/08/2024 Height 63.00 in 04/08/2024 Weight 111 lbs 04/08/2024 BMI 19.66 kg/m2 04/08/2024 Height-cm 160.02 cm 04/08/2024 Weight-kg 50.35 kg 04/08/2024 Encounters Encounter Location Date [facility] [address] [address] 04/08/2024 Yeni Fall Somatic symptom disorder F45.1 [...] Details Provider Name:Yeni mar, 08/17/2024 03:00:00 PM, [facility] [facility] [address], [facility] [address], [place], [address], Progress Notes * HENRY FIELDROXANAOB: [birth year] (88 yo F)Acc No.[id number]:04/08/2024 Patient: DALLIN BARKER Provider: Haleigh Fall :1935 A ge:88 Y S ex:Female Date:04/08/2024 Address:[address] [place], [place] [id number] Pcp:Khari Blanchard MD Subjective: * Chief Complaints: [...] Denies falls. Medical: sees s pecialist at [facility] or the vestibular neuritis in [...] carotid, did work up, sent me to [facility], but CT said severe and doppler [...] delusions, suicidal thoughts, sanna, psychosis. Teofilo Bright [facility] for details. * Medical History: * Surgical History: C arotid endarterectomy ([id number]) right 06/03/2002Cataract surgery ([id number]) 07/15/2018 * Hospitalization/Major Diagno stic Procedure: D [...] Do you have a medical power of state's attorney?: No. * Medications: T akingPriLOSEC 2.5 [...] 9 6127 BEHAV ASSMT W/SCORE & DOCD/STAND [id number] VISIT COMPLEXITY INHERENT TO ONGOING CARE RELATED [...] ____. * Billing Information: * Visit Code: 47172 OFFICE OUTPATIENT VISIT 25 MINUTES DETAILED HISTORY AND EXAM/MODERATE MEDICAL DECISION MAKING. * Procedure Codes: 01266 BEHAV ASSMT W/SCORE & DOCD/STAND INSTRUMENT. G2211 VISIT COMPLEXITY INHERENT TO ONGOING CARE RELATED TO A PATIENT'S SINGLE, SERIOUS CONDITION OR A COMPLEX CONDITION. * ACE CLEANER Electronically co-signed by Mayco Guillen MD on 04/13/2024 at 03:07 PM FURNACE CLEANER Sign off status: Completed true * Provider: Haleigh Fall Date: 1 06/08/2023 Generated for Kim piedra/Dayanara/Martha on: 0 07/20/2024 12:21 PM FURNACE CLEANER History and Physical Notes * HPI (History [...] use. Denies falls. 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 cont [...] carotid, did work up, sent me to [facility], but CT said severe and doppler [...]
--- OUTSIDE RECORDS SUMMARY | 2024-07-20 12:22 | XMS_ITS | Patient Health Record ---
Author Organization [facility] Address [address] [place] [address] Care Team Providers Care Taxi Cab Driver Name Role Phone Santo JAMES, Dr Lucia Primary Care Provider Dr. Sandeep Flores Unavailable [phone] ZZ-Migration, Provider Unavailable Unavailab le Allergies No [...] W/U Status Risk Notes Problem Anxiety disorder (879402948) Anxiety disorder, unspecified (F41.9) Active confirmed Problem Left carotid artery occlusion (188353152228340 ) Occlusion and stenosis of left carotid artery (I65.22) Active confirmed Problem Orthostatic hypotension (54209336) Orthostatic hypotension (I95.1) Active confirmed Vital Signs Respiratory Rate 18 /min 09/25/2023 Oximetry 97 % 09/25/2023 Blood pressure diastolic 81 (lying) mm Hg 09/25/2023 Height 63 in 09/25/2023 Blood pressure systolic 162 mm Hg 09/25/2023 Weight 112.2 lbs 09/25/2023 BMI 19.87 kg/m2 09/25/2023 Encounters Encounter Location Date Provider Diagnosis [address] [address] 11/16/2023 Provider ZZ-Migration [facility] [address] [facility] [address] [place] [address] 09/25/2023 Sandeep Ayleen Dizziness and giddiness R42 [...] Insured Coverage Start Date Coverage End Date [employer] (Medicare) Attention Claims [address] [place] [address] [id number] Sonja Kenney Self - patient is the insured [address] [place] [id number] Sonja Kenney Self - patient is the insured 3 Medical (General) History Medical History History ICD Code Hypothyroidism HLD HTN H/o pernicious anemia/B12 deficiency Orthostatic hypotension Surgical History Surgery Date(Month/Year) R CEA
--- OUTSIDE RECORDS SUMMARY | 2024-07-20 12:22 | XMS_ITS ---
Author Organization [facility] Address [address] [place] [address] Care Team Providers Care Mediator Name Role Phone Santo JAMES, Dr Lucia Primary Care Provider Dr. Sandeep Flores Unavailable [phone] Allergies No Known Allergies REASON FOR VISIT FOUNDATION RELATIONS DIRECTOR Neuro, Dizziness Medications Medication SIG (Take, Route, [...] W/U Status Risk Notes Problem Orthostatic hypotension (69606731) Orthostatic hypotension (I95.1) Active confirmed Problem Anxiety disorder (098353706) Anxiety disorder, unspecified (F41.9) Active confirmed Problem Left carotid artery occlusion (737538701995881 ) Occlusion and stenosis of left carotid artery (I65.22) Active confirmed Vital Signs Blood pressure systolic 162 mm Hg 09/25/19 Blood pressure diastolic 81 (lying) mm Hg 2023 Respiratory Rate 18 /min 09/25/2023 Height 63 in 09/25/2023 Weight 112.2 lbs 09/25/2023 BMI 19.87 kg/m2 09/25/2023 Oximetry 97 % 09/25/2023 Encounters Encounter Location Date Provider Diagnosis [facility] [address] [place] [address] 09/25/2023 Sandeep Abbasi Dizziness and giddiness R42 [...] * PAMELAZaira FlorentinoHernandezOB: [birth year] (88 yo F)Acc No.[id number]:09/25/2023 FOUNDATION RELATIONS DIRECTOR Neuro Patient: Deepika RAFALMonica ROMANn Provider: Mishel Abbasi MD :1935 A ge:88 Y S ex:Female Date:09/25/2023 Address:[address] [place], [place] [address] Pcp:Dr Khari Blanchard MD Subjective: * Chief Complaints: * N P NeuroDizziness * HPI: * Introduction: I had the pleasure of seeing Mishel Keneny, who presented for evaluation of dizziness. She [...] dizziness that she is experiencing. They did Shuqualak-Hallpike testing and it was negative at the [...] Management) * Billing Information: * Visit Code: 56202 Office Visit, New Pt., Level 4. Modifiers: 25 * Procedure Codes: G8427 DOC MEDS VERIFIED W/PT OR RE. * Sign off status: Completed true * Provider: Mishel Abbasi MD Date: 09/25/2023 Generated for Printi ng/Faaubrieg/eTransmitting on: 0 07/20/2024 12:21 PM PIECE WORK INSPECTOR History and Physical Notes * HPI (History [...] rub bilaterally. Palate symmetrically upgoing. Tongue midline. Shuqualak-Hallpike negative bilaterally. Motor 5/5 strength in all [...]
--- OUTSIDE RECORDS SUMMARY | 2024-07-20 12:22 | XMS_ITS ---
Author Organization [facility] Address [address] [place] [address] Care Team Providers Care Terminal Superintendent Name Role Phone Santo JAMES, Dr Lucia Primary Care Provider Dr. Sandeep Flores Unavailable [phone] ZZ-Migration, Provider Unavailable Unavailab le REASON FOR VISIT [facility] Encounter Medications Medication SIG (Take, Route, Frequency, Duration) Notes Start Date End Date Status PRAVACHOL 40 MG 1 TAB(S) ORALLY ONCE A DAY *Please review for potential replacement for e-prescription and drug interaction check* Active Calcium 500+D 500 MG-10 MCG 1 TAB(S) CHEWED 2 TIMES A DAY *Please review and pick correct strength-formulatio n from [facility] options. If intended option is not shown, [...] Active Encounters Encounter Location Date Provider Diagnosis [facility] [address] [place] [address] 11/16/2023 Provider ZZ-Migration Plan Of Treatment No Information Progress Notes * Blade KENNEYOB: [birth year] (89 yo F)Acc No.[id number]:11/16/2023 Patient: Sonja BARKER Provider: Moreno Harrison :1935 A ge:88 Y S ex:Female Date:11/16/2023 Address:[address] [place], [place] [address] Pcp:Dr Khari Blanchard MD Subjective: * Chief Complaints: * 1 . [facility] En[facility]. * Medical History: * Medications: [...] *Please review and pick correct strength-formulation from [facility] options. If intended option is not shown, [...] * Electronic signature of Jumana GRISSOM-Migration on 07/20/2024 at 12:21 PM MODEL BUILDER Sign off status: Pending * Provider: Moreno Harrison Date: 11/16/2023 Generated for Kim piedra/Dayanara/Martha on: 07/20/2024 12:21 PM MODEL BUILDER
--- OUTSIDE RECORDS SUMMARY | 2024-07-20 12:22 | XMS_ITS ---
Author Organization [facility] [employer] [facility] Address [address] [place] [address] Care Team Providers Care Project Management Engineer Name Role Phone Santo JAMES, Khari Primary Care Provider Unavailab Yeni Dhaliwal Unavailable [phone] Magdalena Duckworth Unavailable [phone] Allergies Allergen (clinical drug ingredient) Drug/Non Drug [...] Do you have a medical power of corporate associate attorney?: No Vital Signs Blood pressure systolic 162 mm Hg 03/09/20 24 Blood pressure diastolic 70 mm Hg 024 Heart Rate 84 /min 03/09/2024 Height 63.00 in 03/09/2024 Weight 107 lbs 03/09/2024 BMI 18.95 kg/m2 03/09/2024 Height-cm 160.02 cm 03/09/2024 Weight-kg 48.53 kg 03/09/2024 Encounters Encounter Location Date Provider Diagnosis [facility] [employer] [place] [address] [address] 03/09/2024 Magdalena Duckworth Adjustment disorder with mixed [...] Reason: Provider Name:Yeni mar, 08/17/2024 03:00:00 PM, [facility] [facility] [address], [facility] [address], [place], [address], Progress Notes * AINSLEY FIELDOB: [birth year] (88 yo F)Acc No.[id number]:03/09/2024 Patient: Deepika MICHAELROSALES FlorentinoLYN Provider: KARIN MENARD :1935 A ge:88 Y S ex:Female Date:03/09/2024 Address:[address] [place] [address] Subjective: * Chief Complaints: * 1 . [...] falls. Medical: sees s pecialist at [facility] or the vestibular neuritis in April. [...] did work up, sent me to [facility], but CT said severe and doppler [...] ,. * Surgical History: C arotid endarterectomy ([id number]) right 06/03/2002, Cataract surgery ([id number]) 07/15/2018. * Hospitalization/Major Diagno stic Procedure: D [...] Do you have a medical power of corporate associate attorney?: No. * Medications: T aking Sertraline HCl [...] month * Billing Information: * Visit Code: 96427 OFFICE OUTPATIENT VISIT 25 MINUTES DETAILED HISTORY AND EXAM/MODERATE MEDICAL DECISION MAKING. * Procedure Codes: 45128 BEHAV ASSMT W/SCORE & DOCD/STAND INSTRUMENT. G8510 NEG SCR D PT NOT ELIG F/U/PLN DOC. * Sign off status: Completed true * Provider: KARIN MENARD Date: 1 Generated for Kim piedra/Dayanara/Lucysmitting on: 0 07/20/2024 12:22 PM FIRE SUPPORT MAN History and Physical Notes * HPI (History [...] only. Denies falls. Medical: sees specialist at [place] for the vestibular neuritis in April. Depression [...]
--- OUTSIDE RECORDS SUMMARY | 2024-07-20 12:22 | XMS_ITS ---
Author Organization [facility] As [employer] [facility] Address [address] [place] [address] Care Team Providers Care Business Services Clerk Name Role Phone Santo JAMES, Khari Primary Care Provider UnavailYeni Sanders Unavailable [phone] Allergies Allergen (clinical drug ingredient) Drug/Non Drug [...] Do you have a medical power of civil attorney?: No Problems Problem Type SNOMED Code ICD Code Onset Dates Problem Status W/U Status Risk Notes Problem Benign essential hypertension (5132305) Benign essential hypertension (I10) Active confirmed Problem Hypercholesterolemia (73782312) Hypercholesterolemia (E78.00) Active confirmed Vital Signs Blood pressure systolic 160 mm Hg 05/19/20 24 Blood pressure diastolic 66 mm Hg 024 Heart Rate 79 /min 05/19/2024 Height 63.00 in 05/19/2024 Weight 114 lbs 05/19/2024 BMI 20.19 kg/m2 05/19/2024 Height-cm 160.02 cm 05/19/2024 Weight-kg 51.71 kg 05/19/2024 Encounters Encounter Location Date Provider Diagnosis [facility] [email or web address] [facility] [address] [facility] [address] [place] [address] 05/19/2024 Yeni Fall Somatic symptom disorder F45.1 [...] Reason: Provider Name:Yeni mar, 08/17/2024 03:00:00 PM, [address] [facility] [address] [facility], [address], [address], Progress Notes * YEEHENRY ROMANROXANAOB: [birth year] (88 yo F)Acc No.[id number]:05/19/2024 Patient: Deepika RAFALHENRY ROMANN Provider: Haleigh Fall :1935 A ge:88 Y S ex:Female Date:05/19/2024 Address:[address] [place] [address] Pcp:Khari Blanchard MD Subjective: * Chief Complaints: [...] carotid, did work up, sent me to [facility], but CT said severe and doppler said [...] suicidal thoughts, Dissociations, involuntary movements. Teofilo Bright [facility] for details.? P atient not eligible due [...] Do you have a medical power of civil attorney?: No. * Medications: T akingOmeprazole Magnesium 20 [...] 9 6127 BEHAV ASSMT W/SCORE & DOCD/STAND [id number] Pt not nhung d/t act dig [id number] VISIT COMPLEXITY INHERENT TO ONGOING CARE RELATED TO A PATIENT'S SINGLE, SERIOUS CONDITION OR A COMPLEX CONDITION * Preventive Medicine: * Follow Up: 3 Months * Billing Information: * Visit Code: 40696 OFFICE OUTPATIENT VISIT 25 MINUTES DETAILED HISTORY AND EXAM/MODERATE MEDICAL DECISION MAKING. * Procedure Codes: 46699 BEHAV ASSMT W/SCORE & DOCD/STAND INSTRUMENT. G9744 Pt not nhung d/t act dig htn. G2211 VISIT COMPLEXITY INHERENT TO ONGOING CARE RELATED TO A PATIENT'S SINGLE, SERIOUS CONDITION OR A COMPLEX CONDITION. * ES UNDERWEAR OPERATOR Electronically co-signed by Mayco Guillen MD on 05/21/2024 at 05:52 PM LADIES UNDERWEAR OPERATOR Sign off status: Completed Addendum: * true * Provider: Haleigh Fall Date: 1 07/20/2023 Generated for Kim piedra/Dayanara/Martha on: 0 07/20/2024 12:22 PM LADIES UNDERWEAR OPERATOR History and Physical Notes * HPI [...] use. Denies falls. Medical: sees specialist at [place] for the vestibular neuritis in April. - [...] carotid, did work up, sent me to [facility], but CT said severe and doppler said [...]
--- OUTSIDE RECORDS SUMMARY | 2024-07-20 12:22 | XMS_ITS | Referral Summary ---
Author Organization [facility] [employer] Address [address] [place] [address] Care Team Providers Care Physics Faculty Member Name Role Phone Yamile Hanks NP Primary Care Provider [phone] Encounters Date Type Department Care Team Description 04/28/2024 11:00 AM FLOOR SANDER Procedure visit [facility] Otolaryngology [address] [place] [address] 11th [place] [address] [place] [address] Sensorineural hearing loss, bilateral (Primary Dx); Light headed 04/28/2024 9:00 AM FLOOR SANDER Procedure visit [facility] Otolaryngology [address] [place] [address] [place] [address] [place] [address] Pennie Marino Au.D. Dizziness and giddiness 04/28/2024 11:40 AM FLOOR SANDER Office Visit [facility] - [facility] [address] [place], [place] [address] [place] [address] [place] [address] Melissa Becerril MD Sensorineural hearing loss (SNHL) [...] drink = 0.6 oz pur e alcohol) [facility] Utilities Answer Date Recorded In [...] often do you attend chur ch or buddhist services? Never 09/12/2023 Do you belong to any clubs o r organizations such as christianity groups, unions, fraternal or athletic groups, or [...] place to sleep or slept in a residential (including now)? No 09/12/2023 Personal Safety Answer Date Recorded Have you ever been in or are you currently in a harmful physical or emotional relationship or is someone making you feel afraid or unsafe? Denies 09/11/2023 Comments Unknown Sex and Gender Information Value Date Recorded Sex Assigned at Not on file Legal Sex Female 4:06 PM FLOOR SANDER Gender Identity Not on file Sexual Orientation [...] Diagnosis Comments AUDBASE RESULTS 04/28/2024 9:32 AM FLOOR SANDER from Last 3 Months Results * AudBase Results (04/28/2024 9:32 AM FLOOR SANDER) us Provider Scanning AUDIOLOGY SERVICES ORDERABLES Final Result from Last 3 Months Insurance MEDICARE [employer] [place] [id number] [place] [address] [place] Advance Directives For more information, please contact: [phone] * Full Code (Latest Code Status on File) Date Activated Date Inactivated Comments 09/11/2023 8:06 PM 09/13/2023 5:12 PM Care Teams Physics Faculty Member Relationship Specialty Start Date End Date Yamile Hanks NP [address] [place] [id number] PCP - General Nurse Practitioner 03/25/24
--- OUTSIDE RECORDS SUMMARY | 2024-07-20 12:22 | XMS_ITS | Patient Health Record ---
Author Organization [facility] As [employer] Private Address [address] [place] [address] Care Team Providers Care Dogger Name Role Phone Khari Blanchard MD Primary Care Provider Unavailab Yeni Dhaliwal Unavailable [phone] YelitzaMagdalena lopez Unavailable [phone] Migration, Provider Unavailable Unavailable Allergies Allergen (clinical drug ingredient) Drug/Non Drug Allergy documented on EMR Reaction Allergy Type Onset Date Status Inapsine Unknown Drug Allergy 11/18/2023 Active Results Component Value Reference Range Notes DRUG SCREEN, 14 DRUGS (DETEC TIMED), URINE Reviewed date:10/16/2023 12:00:00 AM Interpretation: Performing Lab: Notes/Report: Amphetamine negative Barbiturates negative Benzodiazipine positive Buprenorphine negative Cocaine negative MDMA/Ectasy negative Methadone negative Methamphetamine negative Morphine negative note +bzo Oxycodone negative Phenocyclidine negative THC negative CONTROLLED SUBSTANCE AGREEME NT* Reviewed date:10/21/2023 12:00:00 AM Interpretation: Performing Lab: Notes/Report: Pt sign Control substance agreement signed Reason For Referral No Information Medications Medication SIG (Take, Route, Frequency, Duration) Notes Start Date End Date Status Pravastatin Sodium 40 MG Oral 10/16/2023 Active Ofloxacin 0.30% Ophthalmic 10/16/2023 Ac tive Levothyroxine Sodium 100 MCG Oral 10/16/2023 Active amLODIPine Besy-Benazepril HCl 5-10 MG Oral 10/16/2023 Active Cyanocobalamin 1000 MCG/ML Injection 10/16/2023 Active Omeprazole Magnesium 20 MG 1 tablet 30 m inutes before morning meal Orally Once a day Active PriLOSEC 2.5 MG as directed Orally Not-Taking Sertraline HCl 100 MG 1 tablet every mor vivek Oral Once a day for 90 days Active Doxycycline Monohydrate 100 MG Oral for 30 Days Active Social History Tobacco Use: Social History [...] Do you have a medical power of programmer analyst?: No Social History Substance Use Do you or [...] Do you have a medical power of programmer analyst?: No Public Health and Travel Have you been to an area known to be high risk for COVID-19?: No Social History Substance Use Do you or [...] Do you have a medical power of programmer analyst?: No Social History Substance Use Do you or [...] Do you have a medical power of programmer analyst?: No Social History Substance Use Do you or [...] Do you have a medical power of programmer analyst?: No Social History Substance Use Do you or [...] Do you have a medical power of programmer analyst?: No Problems Problem Type SNOMED Code ICD Code Onset Dates Problem Status W/U Status Risk Notes Problem Generalized anxiety disorder (86538405) Generalized anxiety disorder (F41.1) 2023 Active confirmed Problem Adjustment disorder with mixed anxiety and depressed mood (195285841) Adjustment disorder with mixed anxiety and depressed mood (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) 2023 Active confirmed Problem 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 Active confirmed Problem Elevated blood pressure reading without diagnosis of hypertension (781536748) Elevated blood-pressure reading, without diagnosis of hypertension (R03.0) Active confirmed Problem Panic disorder (514803635) Panic attacks (F41.0) Active confirmed Problem Hypertension (00577794) Hypertension (I10) Active confirmed Problem Hypercholesterolemia (56266656) Hypercholesterolemia (E78.00) Active confirmed Problem 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 Problem Benign essential hypertension (4210453) Benign essential hypertension (I10) Active confirmed Vital Signs Heart Rate 79 /min 05/19/2024 Height-cm 160.02 cm 05/19/2024 Blood pressure diastolic 66 mm Hg 05/19/2024 Weight-kg 51.71 kg 05/19/2024 Height 63.00 in 05/19/2024 Blood pressure systolic 160 mm Hg 05/19/2024 Weight 114 lbs 05/19/2024 BMI 20.19 kg/m2 05/19/2024 Encounters Encounter [facility] Date [facility] [place] [id number] [facility] [address] [facility] [address] [place] [address] 10/16/2023 Magdalena Woloszynek Adjustment disorder with mixed anxiety and depressed mood F43.23 ; Generalized anxiety disorder F41.1 ; Panic disorder [episodic paroxysmal anxiety] without agoraphobia F41.0 ; Insomnia due to other mental disorder F51.05 and Other terminal superintendent (current) drug therapy Z79.[address] [facility] [address] [place] [address] 11/06/2023 Magdalena Woloszynek [address] [facility] [address] [place] [address] 11/14/2023 Magdalena Woloszynek Adjustment disorder with mixed anxiety and depressed mood F43.23 ; Panic attacks F41.0 ; Generalized anxiety disorder F41.1 and Insomnia due to other mental disorder F51.[address] [facility] [address] [place] [address] 12/23/2023 Magdalena Woloszynek Adjustment disorder with mixed anxiety and depressed mood F43.23 ; Panic attacks F41.0 ; Generalized anxiety disorder F41.1 and Insomnia due to other mental disorder F51.05 [place] [address] [facility] [address] [place] [address] 02/05/2024 Magdalena Woloszynek Adjustment disorder with mixed anxiety and depressed mood F43.23 ; Panic attacks F41.0 ; Generalized anxiety disorder F41.1 and Insomnia due to other mental disorder F51.05 [place] [address] [facility] [address] [place] [address] 03/09/2024 Magdalena Woloszynek Adjustment disorder with mixed anxiety and depressed mood F43.23 ; Panic attacks F41.0 ; Generalized anxiety disorder F41.1 and Insomnia due to other mental disorder F51.05 [place] [address] [facility] [address] [place] [address] 04/08/2024 Yeni Fall Somatic symptom disorder F45.1 ; Panic attacks F41.0 ; Insomnia due to other mental disorder F51.05 and Hypertension I10 [facility] [place] [facility] [address] [facility] [address] [address] 05/19/2024 Yeni Fall Somatic symptom disorder F45.1 ; Generalized anxiety disorder F41.1 ; Insomnia due to other mental disorder F51.05 and Hypertension I10 [facility] [place] [address] [facility] [address] [address] 09/19/2023 [facility] [address] [address] 09/30/2023 Provider Migration [facility] [place] [address] [address] 10/19/2023 Provider Migration [facility] [place] [address] [address] 10/20/2023 Provider Migration Assessments Encounter Date Diagnosis (ICD Code) Assessment Notes Treatment Notes Treatment Clinical Notes Section Notes 11/14/2023 Adjustment disorder with mixed anxiety and depressed mood (ICD-10 - F43.23) increase sertraline to 50mg daily recommend therapy plan: she asks about stopping sertraline-fausto galvez when started. Discuss if stopping SSRI, not planning to continue the bzo and why. Recommend SSRI over BZO terminal superintendent, etc. She agrees to try increase, eduation on medication. hasn't taken any ativan or valium for at least a week keep rare prn, do not take both, etc is not interested in therapy f/u in 1 month, earlier if concerns notes: -Dx: DAMON exacerbated in light of health issues, adjustment d/o with mood and anxiety sx, insomnia r/t anxiety -PCP does not want to handle her bzo anymore; have discussed long-term risks, and given her MA BZO risks handout. Agreed to take over for low dose, and plan for short-term ideally while trying to get SSRI on board, but want to avoid long-term regular use. 11/14/2023 Panic attacks (ICD-10 - F41.0) cont lorazepam, 1mg tab, take 1/2 to 1 tab daily prn (for now, goal to avoid regular long-term use) reports not currently taking -filled 10/16/23 qty #30 5mg diazepam #30 filled 11/07/23 (reports per ED) also states not taking DO NOT TAKE BOTH minimize caffeine 10/16/2023 Generalized anxiety disorder (ICD-10 - F41.1) 10/16/2023 Adjustment disorder with mixed anxiety and depressed mood (ICD-10 - F43.23) 10/16/2023 Insomnia due to other mental disorder (ICD-10 - F51.05) 10/16/2023 Other terminal superintendent (current) drug therapy (ICD-10 - Z79.899) 10/16/2023 Panic disorder [episodic paroxysmal anxiety] without agoraphobia (ICD-10 - F41.0) 12/23/2023 Adjustment disorder with mixed anxiety and depressed mood (ICD-10 - F43.23) increase sertraline to 75mg daily (says can break current tabs in half) recommend couseling stable but still sx, complicated by how much is due to vestibular neuritis sx. Feels like her anxiety would go away if the issue resolved. discuss med options, can increase SSRI, though also consider her GI upset, likely r/t ear not SSRI as had before starting med. She agrees to try increase to 75mg, review r/b/se reports infrequent bzo use, and that she has been using valium from PCP vs lorazapem. PDMR diazepam filled 11/06 and 12/15. In light of this I will not continue filling lorazepam. pt v/u. declines counseling f/u in 6 wks, earlier if concerns 02/05/2024 Adjustment disorder with mixed anxiety and depressed mood (ICD-10 - F43.23) increase sertraline to 100mg daily; if no benefit may change next visit recommend couseling tolearting increase, but no improvement. A lot of anxiety about her medical issues. discuss options, increase SSRI further or change to other, ie lexapro, or possibly mirtazapine, pros/cons. She wants to increase zoloft again, and then if no benefit may switch next visit. review r/b/se can send lorazepam as taking again, but discuss cannot go back and forth on bzo/prescriber, PDMP no fills since last visit. do not also take valium, if see filling that will stop lorazepam. pt v/u declines counseling f/u in 1 month, earlier if concerns 03/09/2024 Adjustment disorder with mixed anxiety and [...] f/u in 1 month, earlier if concerns 04/08/2024 Somatic symptom disorder (ICD-10 - F45.1) [...] months. Current appropriate dx somatic symptom disorder 05/19/2024 Somatic symptom disorder (ICD-10 - F45.1) [...] and consider decreasing Zoloft dosage if appropriate. 03/09/2024 Panic attacks (ICD-10 - F41.0) cont lorazepam 1mg, take 1/2 to 1 tab daily prn, minimize use; does not need refill do not fill with other providers or take similar medication/bzo minimize caffeine 04/08/2024 Insomnia due to other mental disorder [...] months. Current appropriate dx somatic symptom disorder 02/05/2024 Panic attacks (ICD-10 - F41.0) restart lorazepam 1mg, take 1/2 to 1 tab daily prn, minimize use do not fill with other providers or take similar medication/bzo minimize caffeine 12/23/2023 Panic attacks (ICD-10 - F41.0) says pcp filling diazepam, PDMP supports this, I will not be sending lorazepam any further minimize caffeine 11/14/2023 Generalized anxiety disorder (ICD-10 - F41.1) meds as above hx intermittent bzo use in past years 12/23/2023 Generalized anxiety disorder (ICD-10 - F41.1) meds as above recommend counseling hx intermittent bzo use in past years 11/14/2023 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 04/08/2024 Hypertension (ICD-10 - I10) BP was [...] months. Current appropriate dx somatic symptom disorder 05/19/2024 Hypertension (ICD-10 - I10) Assessment and [...] and consider decreasing Zoloft dosage if appropriate. 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.05) taking OTC melatonin 5mg qhs prn insomnia practice good sleep hygiene have given sleep hygiene handout 12/23/2023 Insomnia due to other mental disorder (ICD-10 - F51.05) taking OTC melatonin 5mg qhs prn insomnia practice good sleep hygiene have given sleep hygiene handout 11/14/2023 Other 03/09/2024 Other Plan Of Treatment Next Appt Details Provider Name:Yeni Nena mar, 08/17/2024 03:00:00 PM, [address] [facility] [address] [facility] [address], [place], [address], Insurance Providers Payer Name Payer Address Payer Phone Subscriber Number Group Number Insured Name Patient Relationship to Insured Coverage Start Date Coverage End Date [place] [address] [place] [address] [id number] D[employer]IN [employer] Self - patient is the insured [employer] Medicare Supplement [address] [facility] [place] [address] [id number] [employer] Self - patient is the insured Medical (General) History Medical History History ICD Code Problems: Adjustment disorder with mixed anxiety and depressed mood Generalized anxiety disorder Insomnia disorder related to another men dennis disorder Panic attack Orthostatic hypotension I95.1 Benign essential hypertension I10 Hypercholesterolemia E78.00 Surgical History Surgery Date(Month/Year) Carotid endarterectomy (08215377) right 06/03/2002 Cataract surgery (38570) 07/15/2018
== END 2024-07-20 09:37 | disposition home or self-care (01) ==
PROVIDERS: PCP Nurse Practitioner Family; Visit Provider Nurse Practitioner Family
DX: R91.8 Other nonspecific abnormal finding of lung field (principal); A31.0 Pulmonary mycobacterial infection
CPT/HCPCS: 71250

== ENCOUNTER 2024-11-09 09:23 | Outpatient (CLI) | payer MEDICARE, OTHER, SELFPAY ==
--- NOTE | ~2024-11-09 | CT_ITS ---
CT Scan of the Chest without Contrast: Clinical Indication: Mycobacterial infection Technique: Contiguous sections were acquired throughout the chest without intravenous contrast. Dose reduction technique was used on this scan by utilizing automated exposure control and iterative recon struction technique. The dose-length product (DLP) was 138.84 mGy-cm. COMPARISON: 07/20/2024 Findings: There is no evidence of any significant mediastinal, hilar or axillary lymphadenopathy. There are ath erosclerotic calcifications of the aorta and coronary arteries. There is no evidence of pleural or pericardial effusion. Stable biapical pulmonary scarring. Stable calcified right lower lobe granulomas. Bibasilar areas of nodularity with tree-in-bud nodules and slightly larger irregular opacities are similar to prior exam , probably at the right middle lobe, and basal right lower lobe, anterobasal left lower lobe, and foc al in the lingula. There are new focal nodules at the peripheral left lower lobe, compatible with new disease involvement (axial image 84). Images through the upper abdomen reveal no abnormalities abnormalities. L1 compression fracture demon strates mild progressive loss of height since prior exam.. Impression: Bibasilar tree-in-bud opacities and larger irregular nodular opacities, compatible with infectious/in flammatory process, mildly worsened from prior exam, particularly in the left lower lobe. Stable biapical scarring. Mild progressive loss of height of L1 compression fracture as compared to prior exam. Reviewed, dictated and finalized at [facility]. Impression: Bibasilar tree-in-bud opacities and larger irregular nodular opacities, compati ble with infectious/inflammatory process, mildly worsened from prior exam, part icularly in the left lower lobe. Stable biapical scarring. Mild progressive loss of height of L1 compression fracture as compared to prior exam.
== END 2024-11-09 09:24 | disposition home or self-care (01) ==
LOC: MICIMG 09:24
PROVIDERS: PCP Nurse Practitioner Family; Visit Provider Nurse Practitioner Family
DX: R91.8 Other nonspecific abnormal finding of lung field (principal); S32.010A Wedge compression fracture of first lumbar vertebra, initial encounter for closed fracture; X58.XXXA Exposure to other specified factors, initial encounter; A31.0 Pulmonary mycobacterial infection
CPT/HCPCS: 71250

== ENCOUNTER 2025-01-04 15:52 | Outpatient (RCR) | payer MEDICARE, OTHER, SELFPAY | END 2025-04-02 23:59 | disposition home or self-care (01) | LOC: ANHLAB 15:52 | PROVIDERS: PCP Nurse Practitioner Family | DX: A31.0 Pulmonary mycobacterial infection (principal) | CPT/HCPCS: 87116; 87153; 87186; 87206 ==

== ENCOUNTER 2025-05-18 10:52 | Outpatient (CLI) | payer MEDICARE, OTHER, SELFPAY ==
--- NOTE | ~2025-05-18 | CT_ITS ---
EXAMINATION:CT diagnostic chest wo con DATE: 05/18/2025 11:06 INDICATION: Mycobacterial infection TECHNIQUE: Computed tomography (CT) of the chest was performed without intravenous contrast. The dose-length product (DLP) was 136.26 mGy-cm. COMPARISON: November 09, 2024 FINDINGS: Patchy consolidative changes in both lungs are improved in some areas particularly in the left lower lobe where nodular consolidative changes have largely resolved. Other areas however in the anterior left lung base such as on images 86 through 90 appear worse. Right basilar changes appear similar. Biapical scarring also unchanged. Tree-in-bud formation again noted. No effusion or pneumothorax. Heart and great vessels stable. Bones also appear stable including mild compression fracture of L1. No acute process seen in the visualized portions of the upper abdomen or extrathoracic soft tissues. IMPRESSION: Patchy areas of consolidation in both lung baxter overall not grossly changed. Some areas appear improved and other area slightly worse. Reviewed, dictated and finalized at location A. MS COORDINATOR IMPRESSION: Patchy areas of consolidation in both lung baxter overall not gross ly changed. Some areas appear improved and other area slightly worse.
== END 2025-05-18 10:53 | disposition home or self-care (01) ==
LOC: MICIMG 10:53
PROVIDERS: PCP Nurse Practitioner Family
DX: A31.0 Pulmonary mycobacterial infection (principal)
CPT/HCPCS: 71250